=== PATIENT | female | born 1995 | race Caucasian/White ===

== ENCOUNTER 2020-01-19 12:45 | Emergency (ER) | payer OTHER, SELFPAY ==
[2020-01-19 12:47] VITALS: BP 145/71; PULSE 86; RESP 17; TEMP 36.8; O2SAT 98; BMI 37.9
--- NOTE | 2020-01-19 13:08 | ED.DCSUM_ITS ---
History of Present Illness Chief Complaint: Complaint Informant: Patient Onset: Days Context: Sudden Onset Timing: Continuous Quality: Difficulty urinating Location: Current Severity: Moderate Maximum Severity: Moderate Worsened by: Unknown Relieved by: Nothing Associated Symptoms: Difficulty urinating. Narrative: Patient is a 24-year-old female with no significant past medical history presents with difficulty urinating for possible days. She states she believes she drink enough fluids. In spite of drinking fluid she is not able to urinate. She denies dysuria, frequency, urgency or hematuria. She denies abdominal pain or low back pain. She denies fever or chills. She denies night sweats. She denies weight gain or weight loss. She has no known kidney problems. She denies nausea, vomiting or diarrhea. She denies constipation. She denies gynecologic symptoms. She states relative has problems urinating when the urethra and genital area become swollen. There is no known history of kidney problems. Based on review of medications she is presently on no new meds and nothing that should cause urinary retention. Prior similar symptoms: No Recent Illness/Hospitalization: No - Past Medical History (1) History of depression Status: Acute Past Medical History - Allergies and Home Meds Allergies/Adverse Reactions: Allergies No Known Allergies Allergy (Verified 01/19/20 12:47) Primary Care Physician: Evelina Rendon MD [Primary Care Provider] - Prior records reviewed: Yes Surgical History: no surgical history Alcohol: None Drugs: None Review of Systems General: Denies: Chills, Fever, Malaise, Sweats Cardiovascular: Denies: Chest pain, Palpitations Respiratory: Denies: Dyspnea, Cough, Dyspnea on exertion, Orthopnea, Paroxysmal nocturnal dyspnea Gastrointestinal: Denies: Abdominal pain, Nausea, Vomiting, Constipation, Melena, Hematochezia Genitourinary: Denies: Dysuria, Hematuria, Frequency Musculoskeletal: Denies: Myalgias, Arthralgias, Neck pain, Back pain, Swelling, Extremity Pain, -, - Skin: Denies: Rash, Wounds Neurological: Denies: Headache, Weakness, Parasthesia, Numbness Endocrine: Denies: Polyuria, Polydipsia Physical Exam Vital Signs/Narrative: Vital Signs Temp Pulse Resp BP Pulse Ox 01/19/20 12:47 98.3 F 86 17 145/71 H 98 Inital Vital Signs reviewed: Yes General: Well nourished, Well developed, Obese, No Acute Distress Head: Normocephalic, Atraumatic Eyes: Perrl, EOMI. Negative for: Pale conjunctiva, Scleral icterus ENT: No rhinorrhea, Dry mucous membranes Neck: Supple, Nontender Cardiovascular: Regular rate, Regular rhythm, No murmurs, Normal S1, Normal S2 Respiratory: No distress, CTA bilaterally, Chest nontender Abdomen: Soft, Nontender, Nondistended, Normal bowel sounds, No masses Rectal: Deferred Back: Nontender, Normal Inspection. Negative for: CVA tenderness Skin: Normal color, No rash Neurological: Alert, Oriented x3, Cranial nerves II-XII grossly intact, Normal Strength, Normal Sensation Psychological: Normal affect, Normal Mood Diagnostic/Tx/Re-eval Laboratory Results 01/19/20 01/19/20 13:09 13:30 Sodium 139 Potassium 4.1 Chloride 106 Carbon Dioxide 26.0 Anion Gap 7 BUN 7 Creatinine 0.72 Estim Creat Clear Calc 104.94 Est GFR (MDRD) Af Amer 128 Est GFR (MDRD) Non-Af 106 BUN/Creatinine Ratio 9.7 L Glucose 90 Calcium 9.3 Urine Color Yellow Urine Clarity Clear Urine pH 7.0 Ur Specific [place] 1.015 Urine Protein 15 H Urine Glucose (UA) Normal Urine Ketones Negative Urine Occult Blood Negative Urine Nitrite Positive H Urine Bilirubin Negative Urine Urobilinogen Normal Ur Leukocyte Esterase 25 H Renal function is normal. Macro reveals nitrites and leukoesterase. Urine culture was sent in place and was placed on 3-day course of Macrobid. He was referred to urology for urinary retention. - Medical Decision Making [place] patient appears dehydrated. She had no discomfort with palpation over the suprapubic area and based on body habitus unable to determine if she has a distended bladder. Will have nurse perform bladder scan determine if she has urinary retention. BMP was obtained to assess BUN to creatinine ratio as well as electrolytes and renal function. UA to evaluate for specific gravity and if there are any epithelial or hilar casts etc. I was informed by her nurse that the bladder scan revealed 567 cc of urine. A [place] was ordered. ED Disposition - Plan for ED Patient: Disposition: Home or Assisted Living Diagnosis: Acute urinary retention Instructions: ED [place] Catheter Care Prescriptions: Nitrofurantoin Macrocrystals [Macrobid] 100 mg PO Q12 #10 cap Transmission Status: Pending to [id number] Referrals: Evelina Rendon MD [Primary Care Provider] - Tigre Sanabria MD [STAFF PHYSICIAN] - 3-5 Days
[2020-01-19] MEDS: 0.9% Normal Saline 1,000 ML 1000 ML IV (13:27)
[2020-01-19 13:29] LABS: Anion Gap 7 (5-15); BUN 7 mg/dL (7-18); BUN/Creat Ratio 9.7 RATIO (10-20); Calcium,Total 9.3 mg/dL (8.5-10.1); Chloride 106 mmol/L (98-107); Creatinine, Serum 0.72 mg/dL (0.55-1.02); EST Glomerular Filtration Rate 106 mL/min (>60); Est Glom Filt Rate - Afr Amer 128 mL/min (>60); Estimated Creatinine Clearance 104.94 ml/min; Glucose 90 mg/dL (74-106); Potassium 4.1 mmol/L (3.5-5.1); Sodium Level 139 mmol/L (136-145)
[2020-01-19 13:49] LABS: Color, Urine Yellow (Yellow); Glucose, Dipstick Normal (Normal); Ketone-Dipstick Negative (Negative); Leukocyte Esterase-Dipstick 25 /ul (Negative); Nitrite-Dipstick Positive (Negative); Occult Blood-Urine Negative /ul (Negative); Protein-Dipstick 15 mg/dl (Negative); Specific Gravity, Urine 1.015 (1.002-1.030); Urine Bilirubin Dipstick Negative (Negative); Urine Clarity Clear (Clear); Urine Urobilinogen Normal (Normal)
[2020-01-19] MEDS: Nitrofurantoin Macrocrystals 100 MG Capsule PO (14:14)
[2020-01-19 14:17] VITALS: BP 136/91; PULSE 92; RESP 16; O2SAT 98
== END 2020-01-19 14:19 | disposition home or self-care (01) ==
PROVIDERS: Emergency Provider Emergency Medicine; PCP Pediatrics
DX: R33.9 Retention of urine, unspecified (principal); E66.9 Obesity, unspecified
CPT/HCPCS: 51702; 80048; 81002; 87077; 87086; 87088; 87186; 99284; J7030; A4216

== ENCOUNTER 2021-12-07 20:04 | Emergency (ER) | payer OTHER, SELFPAY ==
[2021-12-07 20:06] VITALS: BP 125/66; PULSE 80; RESP 14; TEMP 36.2; O2SAT 100; BMI 35.2
--- NOTE | 2021-12-07 21:02 | ED.VIS.FEGU ---
HPI HPI - Female History of Present Illness Chief Complaint: Informant: patient Associated Symptoms P: 1 Ab: 0 Narrative Narrative: 1 to 2 hours prior to evaluation, patient was hiking, she tripped over a branch, she fell to her right elbow and her left knee, she did not injure this severely, she did not hit her abdomen or develop any abdominal pain, she is 17 weeks . However later when she went to urinate, she expelled a large 2 inch strand of mucus. She called her OB and out of concern of the possibility of passing her mucous plug, she was advised to come to local ER for evaluation. She has developed no abdominal pain, bleeding, or any other systemic symptoms. Her OB is Dr. Hu out of [facility] in [place]. [facility] Medical History Fx clavicle Fx patella Post depression Home Medications aspirin 81 mg PO DAILY 12/07/21 [History Last Taken Unknown] [id number] [] 1 tab PO DAILY 12/07/21 [History Last Taken Unknown] Allergy/AdvReac Type Severity Reaction Status Date / Time cortisone Allergy Other Verified 12/07/21 20:06 Social History Smoking Status: Former smoker ROS ROS ED Constitutional Constitutional ED: Denies chills or fever(s) Eyes Eyes: Denies change in vision or diplopia ENT ENT ED: Denies rhinorrhea or sore throat Cardiovascular Cardiovascular: Denies chest pain or palpitations Respiratory/Chest Respiratory/Chest: Denies cough or dyspnea Gastrointestinal Gastrointestinal: Denies abdominal pain, diarrhea, nausea or vomiting Genitourinary Genitourinary ED: Denies dysuria or hematuria Musculoskeletal Musculoskeletal: Denies back pain or neck pain Integumentary Reports Abrasions; Denies abscess or rash Neurologic Neurologic: Denies headache(s), paresthesias or weakness Psychiatric Psychiatric: Denies anxiety or suicidal thoughts EXAM Physical Exam Const Vital Signs: 12/07/21 20:06 12/07/21 21:05 12/07/21 22:00 Temperature 97.1 F L Temperature Source Temporal Pulse Rate 80 Respiratory Rate 14 18 17 Blood Pressure 125/66 H Blood Pressure Mean 85 Pulse Ox 100 Oxygen Delivery Method Room Air Room Air Room Air 12/07/21 23:00 Temperature Temperature Source Pulse Rate Respiratory Rate 15 Blood Pressure Blood Pressure Mean Pulse Ox Oxygen Delivery Method Room Air Positive well nourished and well developed Constitutional Narrative: Well-appearing in no distress General Appearance ED: well developed and NAD HEENT Reports moist mucous membranes normocephalic and atraumatic Eyes PERRL and EOMs intact bilaterally Neck full ROM and supple Resp normal respiratory effort and clear to auscultation bilaterally Cardio regular rate, regular rhythm and no murmurs Rate: Negative for tachycardic GI non-tender and non-distended Auscultation: normoactive bowel sounds Palpation: soft Narrative: External exam is normal. Pelvic/speculum exam performed with adjunct nursing faculty, in sterile manner; there is mucus present emanating from the cervical eyes. The cervix is otherwise normal. No bleeding. Back/Spine no CVA tenderness General Back: other FROM Extremity normal to inspection General Extremety ED: Negative for edema, pulses abnormal or tenderness General Extremity: Negative for edema or pulses abnormal Neuro oriented x3, CN's II-XII intact bilaterally and no sensory deficits noted Sensorium / Orientation: awake and alert Motor Exam: strength 5/5 throughout Skin no rashes or lesions noted and no wounds MDM MDM MDM Narrative Medical decision making narrative: Patient did not know her blood type nor did we have record of it, therefore we sent an ABO/OH, she is O+ so RhoGAM is not indicated. I did bedside OB ultrasound, there is a single live intrauterine , heart tones 167, biparietal distance consistent with approximately 18w0d . Patient has developed no bleeding nor abdominal pain. I discussed with Dr. Gonzalez, on-call for her OB group, she advises reassuring the patient for now, discharging her home, and someone will contact her in the morning for further follow-up instructions. Lab Data Attestation: I reviewed the patient's lab results. Labs: Laboratory Results - last 24 hr 12/07/21 21:05 Blood Type O POSITIVE Discharge Plan Triage Chief Complaint: ED Provider: Ayo Castillo Dx/Rx/DC Orders Clinical Impression: Cervical mucus plug of passed, Second trimester , Fall from slip, trip, or stumble Instructions: ED Possible Miscarriage ... Prescriptions: No Action aspirin 81 mg Capsule 81 mg PO DAILY RF: 0 1 mg Tablet 1 tab PO DAILY RF: 0 Primary Care Provider: Evelina Rendon Referrals: Jacey Gonzalez MD [STAFF PHYSICIAN] - (Someone will call you for further follow-up instructions tomorrow) Evelina Rendon MD [Primary Care Provider] - Activity Restrictions/Additional Instructions: Pelvic rest until told otherwise Disposition Disposition: Home, Self Care
[2021-12-07 21:05] VITALS: RESP 18
[2021-12-07 22:00] VITALS: RESP 17
[2021-12-07 23:00] VITALS: RESP 15
== END 2021-12-07 23:26 | disposition home or self-care (01) ==
PROVIDERS: Emergency Provider Emergency Medicine; PCP Pediatrics; Visit Provider Emergency Medicine
DX: O26.892 Other specified pregnancy related conditions, second trimester (principal); Z87.891 Personal history of nicotine dependence; Z79.82 Long term (current) use of aspirin; Z3A.17 17 weeks gestation of pregnancy; W19.XXXA Unspecified fall, initial encounter
CPT/HCPCS: 86900; 86901; 99282

== ENCOUNTER → 2022-10-17 | Outpatient (CLI) | payer MEDICAID, SELFPAY ==
[2022-10-19 22:07] LABS: Chlamydia By Nucleic Acid AMP Negative (Negative)
[2022-10-20 09:28] LABS: Gonococcus By Nucleic Acid AMP Negative (Negative)
[2022-10-25 12:22] LABS: HPV Reflexed? NOT INDICATED
== END | disposition home or self-care (01) ==
PROVIDERS: PCP Pediatrics; Referring Provider Obstetrics & Gynecology; Visit Provider Obstetrics & Gynecology
DX: O09.90 Supervision of high risk pregnancy, unspecified, unspecified trimester (principal)
CPT/HCPCS: 87086; 87088; 87491; 87591; 88175; G0145

== ENCOUNTER → 2022-10-24 | Outpatient (CLI) | payer MEDICAID, SELFPAY ==
[2022-10-24 16:23] LABS: Absolute Lymphocyte Count 2.46 X10^3/uL (0.83-4.51); Absolute Neutrophil Count 6.8 X10^3/uL (2.0-7.7); Basophil# 0.04 X10^3/uL; Basophil% 0.4 % (0-1); Eosinophil# 0.06 X10^3/uL; Eosinophils% 0.6 % (0-5); Hemoglobin 13.5 g/dL (12.0-15.0); Lymphocyte # 2.46 X10^3/ul (0.83-4.51); Lymphocyte % 24.6 % (19-41); Mean Corp Hgb Conc 33.8 g/dL (32-36); Mean Corpuscular Hgb 28.7 pg (27.0-32.0); Mean Corpuscular Volume 84.9 fL (81-99); Mean Platelet Vol. 9.2 fl (6.2-12.0); Monocyte# 0.61 X10^3/uL; Monocyte% 6.1 % (0-10); NRBC Flagged by Analyzer 0 % (0-5); Platelet Count 266 K/mm3 (150-450); RBC Distribution Width CV 15.9 % (11.6-14.6); RBC Distribution Width SD 49.8 fl (35.1-43.9); Red Blood Count 4.71 M/mm3 (4.2-5.4)
[2022-10-24 16:26] LABS: Protein, Urine (Random) 24.3 mg/dL (<11.9); Protein:Creat Ratio 130 mg/g CRE (0-200)
[2022-10-24 16:55] LABS: NATERA MAILED SPECIMEN
[2022-10-24 17:03] LABS: ALB/GLOB Ratio 1.1 RATIO (0.9-2.4); AST(SGOT) 24 U/L (15-37); Alanine Aminotransfer ALT/SGPT 25 U/L (13-56); Albumin, Serum 3.9 g/dL (3.2-5.0); Alkaline Phosphatase 81 U/L (45-117); Anion Gap 6 (5-15); BUN 6 mg/dL (7-18); BUN/Creat Ratio 9.9 RATIO (10-20); Chloride 106 mmol/L (98-107); Creatinine, Serum 0.61 mg/dL (0.55-1.02); EST Glomerular Filtration Rate 127 mL/min (>60); Est Glom Filt Rate - Afr Amer 153 mL/min (>60); Globulin 3.7 g/dL (2.2-4.2); Glucose 86 mg/dL (74-106); Potassium 3.2 mmol/L (3.5-5.1); Protein, Total 7.6 g/dL (6.4-8.2); Sodium Level 137 mmol/L (136-145)
[2022-10-24 17:41] LABS: HIV - WCH Non-Reactive (Nonreactive); Hepatitis B Surface Antigen Non-Reactive (Nonreactive); Hepatitis C Antibody Non-Reactive (Nonreactive); Rubella IgG Reactive (Nonreactive); Syphilis Antibodies Non-reactive
== END | disposition home or self-care (01) ==
LOC: PAVLAB 15:43
PROVIDERS: PCP Pediatrics; Referring Provider Obstetrics & Gynecology; Visit Provider Obstetrics & Gynecology
DX: O09.90 Supervision of high risk pregnancy, unspecified, unspecified trimester (principal)
CPT/HCPCS: 36415; 80053; 82570; 84156; 85025; 86703; 86762; 86780; 86803; 86850; 86900; 86901; 87340

== ENCOUNTER → 2022-10-31 | Outpatient (CLI) | payer MEDICAID, SELFPAY ==
[2022-10-31 18:17] LABS: Anion Gap 2 (5-15); BUN 9 mg/dL (7-18); BUN/Creat Ratio 14.9 RATIO (10-20); Calcium,Total 9.4 mg/dL (8.5-10.1); Chloride 105 mmol/L (98-107); Creatinine, Serum 0.61 mg/dL (0.55-1.02); EST Glomerular Filtration Rate 127 mL/min (>60); Est Glom Filt Rate - Afr Amer 153 mL/min (>60); Glucose 82 mg/dL (74-106); Potassium 3.9 mmol/L (3.5-5.1); Sodium Level 133 mmol/L (136-145)
== END | disposition home or self-care (01) ==
LOC: LAB 16:45
PROVIDERS: PCP Pediatrics; Referring Provider Obstetrics & Gynecology; Visit Provider Obstetrics & Gynecology
DX: Z34.91 Encounter for supervision of normal pregnancy, unspecified, first trimester (principal); Z3A.09 9 weeks gestation of pregnancy
CPT/HCPCS: 36415; 80048

== ENCOUNTER → 2022-12-14 | Outpatient (CLI) | payer MEDICAID, SELFPAY ==
[2022-12-14 16:11] LABS: Glucose Challenge Gest 1H 50g 93 mg/dL (70-140)
== END | disposition home or self-care (01) ==
LOC: PAVLAB 15:27
PROVIDERS: PCP Pediatrics; Referring Provider Obstetrics & Gynecology; Visit Provider Obstetrics & Gynecology
DX: O99.210 Obesity complicating pregnancy, unspecified trimester (principal)
CPT/HCPCS: 36415; 82950

== ENCOUNTER → 2022-12-27 | Outpatient (CLI) | payer MEDICAID, SELFPAY | END | disposition home or self-care (01) | PROVIDERS: PCP Pediatrics; Referring Provider Obstetrics & Gynecology; Visit Provider Obstetrics & Gynecology | DX: Z34.90 Encounter for supervision of normal pregnancy, unspecified, unspecified trimester (principal); Z3A.00 Weeks of gestation of pregnancy not specified | CPT/HCPCS: 36415 ==

== ENCOUNTER 2023-02-05 14:48 | Outpatient (CLI) | payer MEDICAID, SELFPAY ==
[2023-02-05 14:49] VITALS: BP 120/63; PULSE 78; RESP 18; TEMP 36.1; O2SAT 96
--- NOTE | 2023-02-05 15:06 | RAD_ITS ---
INDICATION: pain, trauma -- shield abdomen 25 weeks EXAMINATION/TECHNIQUE: X-RAY - LEFT XR Knee 2 VIEWS COMPARISON: FINDINGS: SOFT TISSUES: No soft tissue swelling or gas. No radiopaque foreign body. BONES/JOINTS: No acute fracture or subluxation.. Normal alignment. Preservation of the joint space.. No sclerotic or destructive changes observed. RAD/Knee 1 or 2 Views IMPRESSION: Negative. Electronically Signed: Judith Leonard MD at 15:58 EDT ,
--- NOTE | 2023-02-05 15:08 | ED.VIS.LOWEX ---
HPI History of Present Illness Chief Complaint: Lower Extremity Injury Narrative Narrative: 27-year-old female, G3, P2 at approximately 25 weeks gestation, sees Dr. Inna Cohen as her [employer] presents with injury to her left lower extremity that she sustained approximately 45 minutes ago. While she states that she had problems with her left knee previously but was unable to get an MRI secondary to her being with a previous gestation, she states that her dog had pulled her out of the car and onto her left knee and ankle. She fell twisting and a pop in her left knee and now has pain inside. She has pain when trying to fully extend her left knee. She also has pain and swelling diffusely about her left ankle. She sustained abrasions over her left ankle and some on her proximal tibia, and believes that her tetanus immunization is up-to-date. She states she still feels the baby moving around, and denies any vaginal bleeding or pelvic cramping. She did not hit her head or lose consciousness. She presents for evaluation of the pain in her knee and left ankle. [facility] Medical History Fx clavicle Fx patella Osteoarthritis Post depression Home Medications aspirin 81 mg capsule 81 mg PO DAILY 12/07/21 [History Last Taken Unknown] [id number] 1 mg tablet 1 tab PO DAILY 12/07/21 [History Last Taken Unknown] albuterol sulfate 90 mcg/actuation aerosol inhaler 1 inh inhalation ONCE 10/05/22 [History Last Taken Unknown] sertraline 25 mg tablet (Zoloft) 25 mg PO DAILY depression #90 tabs 10/05/22 [Rx Last Taken Unknown] Allergy/AdvReac Type Severity Reaction Status Date / Time cortisone Allergy Other Verified 02/05/23 14:49 bupropion AdvReac Severe Other Verified 02/05/23 14:49 Family History Grandfather Heart disease Mother Endometriosis Surgical History History of delivery History of removal of cyst Social History adopted: No household members: spouse and children housing: house number of children: 3 current occupational status: unemployed current occupation: [employer] current occupational exposures/hazards: No pets and animals: Yes pets and animals: dog(s) history of recent travel: No sexually active: Yes Smoking Status: Former smoker quit date: 08/31/22 how long ago did patient quit smoking: stops during preg alcohol intake: current alcohol intake frequency: holidays/special occasions only substance use type: does not use well-balanced diet: about half the time caffeine: Yes Type: carbonated beverages Number of servings: 2 and coffee Number of servings: 1 seatbelt use: always do you feel safe at home: Yes 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 HEENT: No sore throat. No neck pain. No loss of vision. No rhinorrhea. Cardiovascular: No chest pain. No palpitations. No pedal edema. Respiratory: No cough, no shortness of breath. Abdominal: No abdominal pain. No nausea. No vomiting. Genitourinary: No dysuria. No hematuria. Musculoskeletal: No myalgias. Left knee and ankle pain worse with movement. Worse with weightbearing as well. Neurologic: No headaches. No dizziness. No lightheadedness. Skin: No rash. No change in color. Psychiatric: No depression. No anxiety. EXAM Physical Exam Narrative Exam Narrative: Afebrile. Vital signs noted. HEENT: Normocephalic. Atraumatic. PERRL, EOMI. Neck soft and supple. No point tenderness or step off. Cardiovascular: Regular rate and rhythm. No murmurs, rubs, or gallops appreciated. Respiratory: No tachypnea. Lungs clear to auscultation bilaterally. Gastrointestinal: Abdomen soft, nontender, with normoactive bowel sounds. No rebound or guarding. Gravid uterus. Neurological: Awake. Alert. Nonfocal, nonlateralizing. Skin: No rash. Normal color. No pallor. Musculoskeletal: No pedal edema. Limited range of motion of left knee and ankle secondary to pain. Positive abrasions over left ankle and left anterior tibia proximally without active bleeding. Flexion extension mechanism of left leg/knee intact. Able to raise leg off bed. Palpable dorsalis pedis pulse. Diffuse tenderness to palpation left ankle. Const Vital Signs: 02/05/23 14:49 Temperature 97 F L Temperature Source Temporal Pulse Rate 78 Respiratory Rate 18 Blood Pressure 120/63 Blood Pressure Mean 82 Pulse Ox 96 Oxygen Delivery Method Room Air MDM MDM MDM Narrative Medical decision making narrative: heart tones will be obtained as the patient is 25 weeks gestation. X-rays were obtained of the left knee and 2 views and left ankle and 3 views. She was told of the risk of radiation to herself and the fetus and acknowledges an understanding. She is given Tylenol for analgesia along with ice packs. I reviewed and interpreted her x-rays of her left knee and of her left ankle and see no evidence of an acute fracture or effusion. I reviewed the radiology report which confirms my independent interpretations. At this point in time, she will be placed in an Lexx wrap on her left knee, and an Aircast on her left ankle. I do not feel that crutches should be used as she is 25 weeks and increase her fall risk. heart tones were obtained and they are normal at 143 bpm. I did discuss the patient with Dr. Virgil Rios for Dr. Inna Cohen. As the patient is over 24 weeks gestation, she will be discharged from the emergency department and taken to labor and delivery for further monitoring of her . I feel she be discharged safely home with follow-up. Return instructions were reviewed. Disposition is discharged home in stable condition. History & Record Review Discussion w/independent historian: Patient Additional record(s) reviewed:: Prior ED visit Radiography Diagnostic Testing: Clinical Impression(s) from Imaging Studies Knee X-Ray 02/05/23 15:06 IMPRESSION: Negative. Electronically Signed: Judith Leonard MD at 15:58 EDT , Ankle X-Ray 02/05/23 15:36 IMPRESSION: Negative. Electronically Signed: Judith Leonard MD at 15:58 EDT , Management Discussion w/another healthcare provider: Grocery Clerk Stocking ([employer], Dr. Rios) Discharge Plan Triage Chief Complaint: Lower Extremity Injury ED Provider: David Carreon Dx/Rx/DC Orders Clinical Impression: Left knee sprain, Abrasion of left lower leg, Fall, Left ankle sprain Instructions: ED Knee Sprain, ED Ankle Sprain (Adult) Prescriptions: No Action albuterol sulfate 90 mcg/actuation HFA aerosol inhaler 1 inh inhalation ONCE sertraline [Zoloft] 25 mg tablet 25 mg PO DAILY Qty: 90 2RF aspirin 81 mg Capsule 81 mg PO DAILY 1 mg Tablet 1 tab PO DAILY Primary Care Provider: Evelina Rendon Referrals: Evelina Rendon MD [Primary Care Provider] - Inna Cohen MD [Med Staff - Active Staff] - Keep Kristi appointment Activity Restrictions/Additional Instructions: Report immediately to labor and delivery for further monitoring of your . Take Tylenol as needed for pain. No ibuprofen or NSAIDs. Disposition Disposition: Home, Self Care
[2023-02-05 15:28] VITALS: BMI 37.8
[2023-02-05] MEDS: Acetaminophen 325 MG Tablet 650 MG PO (15:31)
--- NOTE | 2023-02-05 15:36 | RAD_ITS ---
INDICATION: pain, trauma -- shield abdomen, 25 weeks EXAMINATION/TECHNIQUE: X-RAY - LEFT XR Ankle Min 3 Views 3 VIEWS COMPARISON: No relevant prior comparison study available FINDINGS: SOFT TISSUES: No soft tissue swelling or gas. No radiopaque foreign body. BONES/JOINTS: No acute fracture or subluxation.. Normal alignment. Preservation of the joint space.. No sclerotic or destructive changes observed. RAD/Ankle min 3 Views IMPRESSION: Negative. Electronically Signed: Judith Leonard MD at 15:58 EDT ,
[2023-02-05 16:54] VITALS: BMI 36.8
--- NOTE | 2023-02-05 17:35 | OB.TRI.PN_ITS ---
Progress Notes Date of Service: 02/05/23 Progress Note: Patient presents for triage evaluation secondary to falling to her knees earlier today. She had no abdominal trauma. FHT: Moderate variability, no decelerations appropriate for gestational age [place]: no Contractions Assessment and plan: appropriate for gestational age, no abdominal trauma, no vaginal bleeding or contractions, O+, positive movement, reassuring maternal and status patient discharged to home to follow-up in office . See problem list details for additional plan information. Charges/Coding Multi Select Codes Urinary/Genital Urinary/Genital CPT Codes: No Charge Assessment & Plan (1) Fall: (2) Supervision of high risk , antepartum: COMMENT: ELISA 05/19/23 PC Gregory [place], [place] ([place] (3) : QUALIFIERS: Weeks of gestation: 17 weeks Qualified Code(s): Z3A.17 - 17 weeks gestation of COMMENT: NIPT low risk, nl GCT, Negative AFP labs (4) Anxiety during : COMMENT: no meds, encouraged counseling (5) History of delivery affecting : COMMENT: Apr 2022- wanting repeat C/S
== END 2023-02-05 17:35 | disposition home or self-care (01) ==
LOC: ED 16:26 → WPOUT 16:47 → WP 16:49
PROVIDERS: Emergency Provider Emergency Medicine; PCP Pediatrics; Referring Provider Advanced Practice Midwife; Visit Provider Advanced Practice Midwife
DX: O9A.212 Injury, poisoning and certain other consequences of external causes complicating pregnancy, second trimester (principal); O09.92 Supervision of high risk pregnancy, unspecified, second trimester; Z3A.17 17 weeks gestation of pregnancy; O99.342 Other mental disorders complicating pregnancy, second trimester; F41.9 Anxiety disorder, unspecified; O34.219 Maternal care for unspecified type scar from previous cesarean delivery; S83.92XA Sprain of unspecified site of left knee, initial encounter; S93.402A Sprain of unspecified ligament of left ankle, initial encounter; S80.812A Abrasion, left lower leg, initial encounter; W19.XXXA Unspecified fall, initial encounter
CPT/HCPCS: 59025; 59050; 73560; 73610; 99221; 99283; G0378

== ENCOUNTER → 2023-02-10 | Outpatient (CLI) | payer MEDICAID, SELFPAY ==
[2023-02-10 15:59] LABS: Absolute Lymphocyte Count 1.91 X10^3/uL (0.83-4.51); Absolute Neutrophil Count 10.7 X10^3/uL (2.0-7.7); Basophil# 0.04 X10^3/uL; Basophil% 0.3 % (0-1); Eosinophils% 0.7 % (0-5); Hemoglobin 13.1 g/dL (12.0-15.0); Lymphocyte # 1.91 X10^3/ul (0.83-4.51); Lymphocyte % 14.1 % (19-41); Mean Corp Hgb Conc 32.8 g/dL (32-36); Mean Corpuscular Hgb 29.4 pg (27.0-32.0); Mean Corpuscular Volume 89.9 fL (81-99); Mean Platelet Vol. 10.3 fl (6.2-12.0); Monocyte# 0.74 X10^3/uL; Monocyte% 5.5 % (0-10); NRBC Flagged by Analyzer 0 % (0-5); Neutrophil # 10.66 X10^3/uL (2.7-7.7); Neutrophil % 78.9 % (47-70); Platelet Count 228 K/mm3 (150-450); RBC Distribution Width CV 13.6 % (11.6-14.6); RBC Distribution Width SD 44.9 fl (35.1-43.9); Red Blood Count 4.45 M/mm3 (4.2-5.4); White Blood Count 13.5 K/mm3 (4.4-11.0)
[2023-02-10 17:08] LABS: Glucose Challenge Gest 1H 50g 95 mg/dL (70-140)
[2023-02-10 17:42] LABS: HIV - WCH Non-Reactive (Nonreactive); Syphilis Antibodies Non-reactive
== END | disposition home or self-care (01) ==
LOC: LAB 15:16
PROVIDERS: PCP Pediatrics; Referring Provider Obstetrics & Gynecology; Visit Provider Obstetrics & Gynecology
DX: O09.90 Supervision of high risk pregnancy, unspecified, unspecified trimester (principal); Z3A.00 Weeks of gestation of pregnancy not specified
CPT/HCPCS: 36415; 82950; 85025; 86703; 86780

== ENCOUNTER → 2023-03-07 | Outpatient (CLI) | payer MEDICAID, SELFPAY ==
[2023-03-07 17:17] LABS: Absolute Lymphocyte Count 2.56 X10^3/uL (0.83-4.51); Absolute Neutrophil Count 9.7 X10^3/uL (2.0-7.7); Basophil# 0.04 X10^3/uL; Basophil% 0.3 % (0-1); Eosinophil# 0.09 X10^3/uL; Eosinophils% 0.7 % (0-5); Hematocrit 37.2 % (37-47); Hemoglobin 13.1 g/dL (12.0-15.0); Lymphocyte # 2.56 X10^3/ul (0.83-4.51); Lymphocyte % 19.3 % (19-41); Mean Corp Hgb Conc 35.2 g/dL (32-36); Mean Corpuscular Hgb 31.3 pg (27.0-32.0); Mean Platelet Vol. 10.8 fl (6.2-12.0); Monocyte# 0.78 X10^3/uL; Monocyte% 5.9 % (0-10); NRBC Flagged by Analyzer 0 % (0-5); Neutrophil % 73.1 % (47-70); Platelet Count 206 K/mm3 (150-450); RBC Distribution Width CV 13.3 % (11.6-14.6); RBC Distribution Width SD 43.1 fl (35.1-43.9); Red Blood Count 4.18 M/mm3 (4.2-5.4); White Blood Count 13.3 K/mm3 (4.4-11.0)
[2023-03-07 17:36] LABS: Protein:Creat Ratio 247 mg/g CRE (0-200)
[2023-03-07 17:55] LABS: ALB/GLOB Ratio 0.7 RATIO (0.9-2.4); AST(SGOT) 14 U/L (15-37); Alanine Aminotransfer ALT/SGPT 10 U/L (13-56); Albumin, Serum 2.8 g/dL (3.2-5.0); Alkaline Phosphatase 130 U/L (45-117); Anion Gap 8 (5-15); BUN 3 mg/dL (7-18); BUN/Creat Ratio 5.6 RATIO (10-20); Calcium,Total 9.3 mg/dL (8.5-10.1); Chloride 109 mmol/L (98-107); Creatinine, Serum 0.53 mg/dL (0.55-1.02); EST Glomerular Filtration Rate 147 mL/min (>60); Est Glom Filt Rate - Afr Amer 178 mL/min (>60); Globulin 4.2 g/dL (2.2-4.2); Glucose 84 mg/dL (74-106); Potassium 3.1 mmol/L (3.5-5.1); Sodium Level 139 mmol/L (136-145)
== END | disposition home or self-care (01) ==
PROVIDERS: PCP Pediatrics; Referring Provider Nurse Practitioner Women's Health; Visit Provider Nurse Practitioner Women's Health
DX: Z34.90 Encounter for supervision of normal pregnancy, unspecified, unspecified trimester (principal); Z3A.00 Weeks of gestation of pregnancy not specified
CPT/HCPCS: 36415; 80053; 82570; 84156; 85025

== ENCOUNTER 2023-03-22 11:00 | Outpatient (CLI) | payer MEDICAID, SELFPAY ==
[2023-03-22] VITALS (13 sets, daily range): BP systolic 112–136; BP diastolic 56–80; PULSE 65–82; TEMP 36.8; O2SAT 99; BMI 37.8
[2023-03-22 11:31] LABS: Hemoglobin 12.5 g/dL (12.0-15.0); Mean Corp Hgb Conc 32.9 g/dL (32-36); Mean Corpuscular Hgb 29.7 pg (27.0-32.0); Mean Corpuscular Volume 90.3 fL (81-99); Mean Platelet Vol. 10.3 fl (6.2-12.0); Platelet Count 203 K/mm3 (150-450); RBC Distribution Width CV 13.1 % (11.6-14.6); Red Blood Count 4.21 M/mm3 (4.2-5.4); White Blood Count 11.9 K/mm3 (4.4-11.0)
[2023-03-22 11:45] LABS: Protein, Urine (Random) 18.1 mg/dL (<11.9); Protein:Creat Ratio 248 mg/g CRE (0-200)
[2023-03-22 11:54] LABS: AST(SGOT) 12 U/L (15-37); Alanine Aminotransfer ALT/SGPT 12 U/L (13-56); Creatinine, Serum 0.59 mg/dL (0.55-1.02); EST Glomerular Filtration Rate 131 mL/min (>60); Est Glom Filt Rate - Afr Amer 158 mL/min (>60); Estimated Creatinine Clearance 124.77 ml/min; Uric Acid 2.4 mg/dL (2.6-6.0)
--- NOTE | 2023-03-22 11:55 | MRI_ITS ---
STUDY: MRA OF THE HEAD WITHOUT CONTRAST REASON FOR EXAM: Female, 27 years old patient with vision loss, headache and numbness. TECHNIQUE: 3-D [id number] (TOF) imaging was performed with MIPs. The study was performed unenhanced. COMPARISON: None. FINDINGS: Normal bilateral petrous carotid arteries. Normal right cavernous carotid artery with a normal supraclinoid bifurcation. Normal left cavernous carotid artery with a normal supraclinoid bifurcation. Normal right A1 segments of the anterior cerebral artery. There is non-visualization of the left A1 segment of the anterior cerebral arteries consistent with either aplastic development or an occlusion. Normal intact anterior communicating artery (ACOM). Normal bilateral A2 segments of the anterior cerebral arteries. Normal right M1 and M2 segments of the middle cerebral arteries, with a normal M1 bifurcation. Normal left M1 and M2 segments of the middle cerebral arteries, with a normal M1 bifurcation. There is non-visualization of the right posterior communicating artery (PCOM). There is a persistent origin of the left posterior cerebral artery with absence of the P1 segment of the left posterior cerebral artery. There is a small atretic right vertebral artery with a dominant left vertebral artery. Normal basilar artery with a normal basilar bifurcation. The visualized bilateral superior cerebellar (SCA) arteries are normal. There is absence of the left P1 segment of the posterior cerebral arteries with a normal right P1 segment. Normal visualized bilateral P2 and P3 segments of the posterior cerebral arteries. There is no demonstrated aneurysm of the [place]. There is no major vessel occlusion or hemodynamically significant stenosis. There is no demonstrated abnormality of the visualized brain. MRI/MRA Head ONLY without Contrast IMPRESSION: No MRA evidence for hemodynamically significant stenosis, thrombosis or aneurysm. Electronically Signed: Ashtyn Hillman MD at 18:26 EDT ,
--- NOTE | 2023-03-22 11:55 | MRI_ITS ---
STUDY: MRI BRAIN WITHOUT CONTRAST REASON FOR EXAM: Female, 27 years old patient with vision loss, left-sided blurry vision, dizziness, headache, numbness, and feels pressure in head. TECHNIQUE: Standardized multiplanar fat and water weighted pulse sequences were obtained. COMPARISON: Prior comparable comparison studies are not available for review at this time. FINDINGS: Normal size of the ventricles and extra-axial spaces for the patient''s age. Normal white matter tracts of the supratentorial brain. There is no evidence for recent intracranial ischemia or other cause of cytotoxic edema on diffusion weighted imaging (DWI). Normal T2* images of the brain without demonstrated susceptibility artifact. There is no demonstrated hemosiderin stain. Normal bilateral basal ganglia. Normal thalami. There is no extra-axial fluid accumulation. Normal flow voids within the major intracranial circulation suggesting patency by spin echo criteria. Normal sella turcica, pituitary gland, infundibular stalk, optic chiasm and hypothalamus. Normal tectal plate and pineal gland. Normal midbrain, antwan and medulla. Normal cerebellum. Normal basal cisterns. Normal bilateral temporal bones. Normal bilateral internal auditory canals. No demonstrated orbital abnormality, within the constraints of a routine brain study. Normal visualized paranasal sinuses. Normal calvarium and skull base. Normal visualized soft tissue structures. Normal visualized upper cervical spine. MRI/Brain without Contrast IMPRESSION: No MR evidence for mass or acute infarct. Electronically Signed: Ashtyn Hillman MD at 18:31 EDT ,
--- NOTE | 2023-03-22 11:58 | MRI_ITS ---
STUDY: EXAMINATION - MRV BRAIN WITHOUT CONTRAST REASON FOR EXAM: Female, 27 years old patient with visual changes, loss of vision, headache, and numbness. TECHNIQUE: 3D [id number] (TOF) imaging was performed in a andrew MRI scanner. COMPARISON: Prior comparable comparison studies are not available for review at this time. FINDINGS: Normal flow within the superior sagittal sinus. Normal flow within the superficial cortical veins. Normal flow within the paired internal cerebral veins, vein of Lino and straight sinus. There appears to be decreased flow within left transverse sinus and sigmoid sinus possibly secondary to a medial stenosis. The right transverse sinus, sigmoid sinus and jugular bulb have a normal appearance. Normal flow within the bilateral jugular bulbs. MRI/MRV Head Without Contrast IMPRESSION: 1. No MR evidence for dural sinus thrombosis. 2. 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 Electronically Signed: Ashtyn Hillman MD at 18:36 EDT ,
--- NOTE | 2023-03-22 18:03 | OB.TRI.HP_ITS ---
HPI - General HPI Narrative BRENNAN LÓPEZ, is a 27 y/o @ 31 weeks 4 days who presents to L&D from office today with the complaint of posterior headache radiating to front of head, dizziness, and visual changes that are worse when she stands. She has occasional left eye vision loss and numbness in hands and feet. Neurology was consulted and the feed back was that this is likely orthostatic related or cardiac related. the patient denies chest pain or shortness of breath. She denies heart palpitations. She passed her orthostatic tests. An MRA, MRI, MRV were then ordered. Maternal Data Information ELISA Calculator Estimated Delivery Date Method Current WG Current Estimate 05/19/23 LMP (Certain) 31w 5d PFSH PFS Medical History Fx clavicle Fx patella Osteoarthritis Post depression Home Medications aspirin 81 mg capsule 81 mg PO DAILY 12/07/21 [History Last Taken 02/04/23] qqiyzwgz-wsj-Qc-FA 1 mg tablet 1 tab PO DAILY 12/07/21 [History Last Taken 02/04/23] albuterol sulfate 90 mcg/actuation aerosol inhaler 1 inh inhalation ONCE 10/05/22 [History Last Taken 02/04/23] sertraline 25 mg tablet (Zoloft) 25 mg PO DAILY depression #90 tabs 10/05/22 [Rx Last Taken 02/04/23] blood pressure monitor (Blood Pressure Kit) #1 ea 03/08/23 [Rx Last Taken Unknown] Allergy/AdvReac Type Severity Reaction Status Date / Time cortisone Allergy Other Verified 03/22/23 11:35 bupropion AdvReac Severe Other Verified 03/22/23 11:35 Family History Grandfather Heart disease Mother Endometriosis Surgical History History of delivery History of removal of cyst Social History adopted: No household members: spouse and children housing: house number of children: 3 current occupational status: unemployed current occupation: 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 Date Name GA/Weeks Outcome Route Bth Weight Infant Gen [facility] 05/04/17 Adalyne 42 live - full term Female epi dural [facility] 05/09/22 Emberly 37 live - full term Female [facility] Delivery Date: 05/04/17 Last Updated by: Jolanta Rios CNM Pre E Visit Details Expected Delivery Route/Plan RLTCS possible tubal-declines TOLAC Plans Covid status: unvaccinated Flu vaccine: no Tdap vaccine: given Rhogam: NA LARC form signed: yes Problem list reviewed and updated with the most current plan of care details and appropriate orders placed. Relevant counseling for the gestational age provided. Continue routine care and follow up unless otherwise noted in visit notes/problem list details OB Flowsheet Initial Weight: Not Recorded Date -?-?-?-?-?-?-?-?-?-?-?-?- EGA Weight BP Urine Prot -?-?-?-?-?-?-?-?-?-?-?-?- Glucose FHR FuHt Pres Dilation -?-?-?-?-?-?-?-?-?-?-?-?- Effaced St Visit Note 10/17/22 -?-?-?-?-?-?-?-?-?-?-?-?- 9w 3d 199 lb 6 oz 109/65 -?-?-?-?-?-?-?-?-?-?-?-?- 170 -?-?-?-?-?-?-?-?-?-?-?-?- SM- CRL 1.5cm co ns with LMP 11/17/22 -?-?-?-?-?-?-?-?-?-?-?-?- 13w 6d 205 lb 2 oz 120/72 Nega tive -?-?-?-?-?-?-?-?-?-?-?-?- Negative 163 -?-?-?-?-?-?-?-?-?-?-?-?- JV- no lof, vagi nal bleeding, or cramping. GCT ordered. NIPT was normal. 12/14/22 -?-?-?-?-?-?-?-?-?-?-?-?- 17w 5d 208 lb 112/76 Negative -?-?-?-?-?-?-?-?-?-?-?-?- Negative 150 -?-?-?-?-?-?-?-?-?-?-?-?- KW- flutters, no cramping. AFP screening desired. Has US scheduled 12/27. encouraged Asa use. Starting using Albuterol more. discussed tubal with C/S 01/13/23 -?-?-?-?-?-?-?-?-?-?-?-?- 22w 0d 217 lb 6 oz 111/62 Nega tive -?-?-?-?-?-?-?-?-?-?-?-?- Negative 145 -?-?-?-?-?-?-?-?-?-?-?-?- JV- afp was nega tive, ultrasound normal, it's a boy! (they have 3 girls at home) 02/10/23 -?-?-?-?-?-?-?-?-?-?-?-?- 26w 0d 215 lb 113/70 Negative -?-?-?-?-?-?-?-?-?-?-?-?- Negative 146 -?-?-?-?-?-?-?-?-?-?-?-?- JV- pt fell sund ay and was monitored at [facility]. baby was fine but they think she tore a ligament in her knee and twisted her ankle. They told her that they would not do anything for her because MRI is not safe in I told her that this is not true and we need her to be seen. She is having moderate pain. 03/07/23 -?-?-?-?-?-?-?-?-?-?-?-?- 29w 4d 219 lb 4 oz 122/80 Nega tive -?-?-?-?-?-?-?-?-?-?-?-?- Negative 144 30 -?-?-?-?-?-?-?-?-?-?-?-?- MH-No vb,lof. Go od FM. Daily episodes of blurry vision, seeing black spots, feels like will pass out. Normal 28 wk GCT. Will get pre E labs. Enc freg meals, increase fluids. Call to be seen when occurs. MH-No vb,lof. Good FM. Daily episodes of blurry vision, seeing black spots, feels like will pass out. Normal 28 wk GCT. Will get pre E labs. Enc freg meals, increase fluids. Call to be seen when occurs. Larc and tdap. 03/22/23 -?-?-?-?-?-?-?-?-?-?-?-?- 31w 5d 222 lb 6 oz 116/71 Nega tive -?-?-?-?-?-?-?-?-?-?-?-?- Negative 140 32 -?-?-?-?-?-?-?-?-?-?-?-?- - no vb/lof/ct x. good fm. increase loss of vision in left eye. black floaters, inability to read with pressure in head. seeing to for repeat PEC labs and NST. BP reassuring. ROS Constitutional Constitutional: Reports systems reviewed and no addt'l complaints, except as documented ENT HEENT: Reports dizziness Cardiovascular Cardiovascular: Reports dizziness; Denies abdominal bloating, abdominal edema, abdominal pain, chest pain, chest pain at rest, chest pain with activity, dyspnea or dyspnea at rest Respiratory/Chest Respiratory/Chest: Denies cough, dyspnea on exertion, hoarseness or wheezing Gastrointestinal Gastrointestinal: Denies bloating, constipation, cramping, diarrhea, nausea or vomiting Genitourinary Genitourinary: Reports other Details: Denies vaginal odor, vaginal bleeding, or vaginal discharge ; Denies difficulty urinating or flank pain Physical Exam HEENT normocephalic Resp normal respiratory effort and normal air movement no CVA tenderness Extremity normal to inspection General Extremity: edema bilateral (trace ) NST FHR Rate Baby A Baseline: 140 Variability:: Moderate Accelerations:: 15 x 15 Decelerations:: None NST Reactive:: Yes FHR Category:: Category I Assessment & Plan (1) Vision loss of left eye: COMMENT: transient and worse with standing for long periods of time. (2) Headache in : COMMENT: pre- e work up is negative 03/22/23 (3) Blurred vision: COMMENT: Happens daily, sometimes sees spots. Normal recent eye exam. Pre E labs. Freq meals, increase fluids. Call to be seen w/occurrence. repeat PEC labs. P:C on 03/07 257. (4) Obesity affecting : QUALIFIERS: Trimester: third trimester Obesity type affecting : unspecified obesity Qualified Code(s): O99.213 - Obesity complicating , third trimester (5) History of shoulder dystocia: COMMENT: in first , LTCS with second, plans RLTCS (6) History of pre-eclampsia: COMMENT: baseline labs and 81 mg asa at 14 weeks. 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 Stable (10) Anxiety during : COMMENT: zoloft, stable (11) Supervision of high risk , antepartum: COMMENT: [id number] ELISA 05/19/23 PC Gregory Henderson, [place] ([place] (12) : QUALIFIERS: Weeks of gestation: 31 weeks Qualified Code(s): Z3A.31 - 31 weeks gestation of COMMENT: NIPT low risk, nl GCT, Negative AFP labs PLAN: Plan 1. The patient has been observed for several hours and has gone through a neuro exam that was found to be negative over a telemedical service. 2. mri,mra,mrv are pending. 3. PRe-eclampsia work up is negative 4. The is to dc to home if the above tests are negative and follow up with neurology outpatient as teleservice was not helpful or informative. 5. plan to continue eating frequent meals, hydrating, and wearing compression stockings. Charges/Coding Multi Select Codes Visit Charges Office Visit/Consults: 19363 OV L3 Est Urinary/Genital Urinary/Genital CPT Codes: 75213-34 non-stress test Interp
[2023-03-22] MEDS: Famotidine 20 MG Tablet 40 MG PO (21:09)
--- NOTE | 2023-03-22 22:13 | NURSING ---
2155 pt transferred to [facility] Labor and Delivery via [facility]
== END 2023-03-22 21:55 | disposition short-term general hospital (02) ==
LOC: WPOUT 11:05 → WP 11:05
PROVIDERS: Registered Nurse; PCP Pediatrics; Referring Provider Obstetrics & Gynecology; Visit Provider Obstetrics & Gynecology
DX: O26.893 Other specified pregnancy related conditions, third trimester (principal); E75.249 Niemann-Pick disease, unspecified; R51.9 Headache, unspecified; O99.213 Obesity complicating pregnancy, third trimester; O09.893 Supervision of other high risk pregnancies, third trimester; Z3A.31 31 weeks gestation of pregnancy; O99.891 Other specified diseases and conditions complicating pregnancy; H54.50 Low vision, one eye, unspecified eye; H53.8 Other visual disturbances; O99.513 Diseases of the respiratory system complicating pregnancy, third trimester; J45.909 Unspecified asthma, uncomplicated; O99.283 Endocrine, nutritional and metabolic diseases complicating pregnancy, third trimester; O99.343 Other mental disorders complicating pregnancy, third trimester; F41.9 Anxiety disorder, unspecified; F32.A Depression, unspecified; Z87.891 Personal history of nicotine dependence; Z79.82 Long term (current) use of aspirin; Z79.899 Other long term (current) drug therapy
CPT/HCPCS: 96372; 36415; 59025; 59050; 70544; 70551; 82565; 82570; 84156; 84450; 84460; 84550; 85027; 99221; G0378

== ENCOUNTER 2023-04-12 17:40 | Outpatient (CLI) | payer MEDICAID, SELFPAY ==
[2023-04-12 17:51] VITALS: TEMP 37.2; O2SAT 97
[2023-04-12 17:53] VITALS: BP 136/69; PULSE 94
[2023-04-12 17:55] VITALS: PULSE 101; O2SAT 97
[2023-04-12 18:12] VITALS: BMI 38.0
[2023-04-12 18:39] LABS: Mucous, Urine 0 SEEN /hpf (<or=2+); Red Blood Cells-Urine 0 SEEN /hpf (0-5)
[2023-04-12 18:40] LABS: Color, Urine Yellow (Yellow); Glucose, Dipstick Normal (Normal); Ketone-Dipstick Negative (Negative); Leukocyte Esterase-Dipstick 25 /ul (Negative); Nitrite-Dipstick Negative (Negative); Occult Blood-Urine 10 /ul (Negative); Protein-Dipstick 15 mg/dl (Negative); Urine Bilirubin Dipstick Negative (Negative); Urine Clarity Clear (Clear); Urine Urobilinogen Normal (Normal)
[2023-04-12 18:46] LABS: Bacteria 1+ /hpf (None Seen); Squamous Epithelial Cells - UA 0-5 SEEN /hpf (5-10)
[2023-04-12 18:47] LABS: White Blood Cells 0-5 SEEN /hpf (0-5)
[2023-04-12 19:12] VITALS: BP 136/78; PULSE 88
[2023-04-12 19:13] VITALS: PULSE 90; TEMP 36.3; O2SAT 98
[2023-04-12] MEDS: Nitrofurantoin Macrocrystals 100 MG Capsule PO (19:54)
--- NOTE | 2023-04-12 20:02 | OB.TRI.HP_ITS ---
HPI - General HPI Narrative BRENNAN LÓPEZ, is a 27 F who presents at 34+5 with irritable contraction and pressure. active fetus. no vb/lof. Maternal Data Information ELISA Calculator Estimated Delivery Date Method Current WG Current Estimate 05/19/23 LMP (Certain) 34w 5d PFSH PFSH Medical History Fx clavicle Fx patella Osteoarthritis Post depression Home Medications aspirin 81 mg capsule 81 mg PO DAILY 12/07/21 [History Last Taken 02/04/23] ewjcxltx-swi-Uf-FA 1 mg tablet 1 tab PO DAILY 12/07/21 [History Last Taken 02/04/23] albuterol sulfate 90 mcg/actuation aerosol inhaler 1 inh inhalation ONCE 10/05/22 [History Last Taken 02/04/23] sertraline 25 mg tablet (Zoloft) 25 mg PO DAILY depression #90 tabs 10/05/22 [Rx Last Taken 02/04/23] blood pressure monitor (Blood Pressure Kit) #1 ea 03/08/23 [Rx Last Taken Unknown] mecobalamin (vitamin B12) 1,000 mcg disintegrating tablet,sublingual 1,000 mcg sublingual QHS 04/03/23 [History Last Taken Unknown] mecobalamin (vitamin B12) 10,000 mcg solution for injection mcg IM MONTHLY 04/03/23 [History Last Taken Unknown] nitrofurantoin monohydrate/macrocrystals 100 mg capsule (Macrobid) 100 mg PO Q12H 5 days #10 caps 04/12/23 [Rx Last Taken Unknown] Allergy/AdvReac Type Severity Reaction Status Date / Time cortisone Allergy Other Verified 04/03/23 11:54 bupropion AdvReac Severe Other Verified 04/03/23 11:54 Family History Grandfather Heart disease Mother Endometriosis Surgical History History of delivery History of removal of cyst Social History adopted: No household members: spouse and children housing: house number of children: 3 current occupational status: unemployed current occupation: [employer] current occupational exposures/hazards: No pets and animals: Yes pets and animals: dog(s) history of recent travel: No sexually active: Yes Smoking Status: Former smoker quit date: 08/31/22 how long ago did patient quit smoking: stops during preg alcohol intake: current alcohol intake frequency: holidays/special occasions only substance use type: does not use well-balanced diet: about half the time caffeine: Yes Type: carbonated beverages Number of servings: 2 and coffee Number of servings: 1 seatbelt use: always do you feel safe at home: Yes 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 Date Name GA/Weeks Outcome Route Bth Weight Gen Labor Lgth Ane sthesia Del Locatn Provider FOB 05/04/17 Adalyne 42 live - full term Female epi dural [facility] 05/09/22 Emberly 37 live - full term Female [facility] Delivery Date: 05/04/17 Last Updated by: Jolanta Rios CNM Pre E Visit Details Expected Delivery Route/Plan RLTCS possible tubal-declines TOLAC Plans Covid status: unvaccinated Flu vaccine: no Tdap vaccine: given Rhogam: NA LARC form signed: yes Problem list reviewed and updated with the most current plan of care details and appropriate orders placed. Relevant counseling for the gestational age provided. Continue routine care and follow up unless otherwise noted in visit notes/problem list details OB Flowsheet Initial Weight: Not Recorded Date -?-?-?-?-?-?-?-?-?-?-?-?- EGA Weight BP Urine Prot -?-?-?-?-?-?-?-?-?-?-?-?- Glucose FHR FuHt Pres Dilation -?-?-?-?-?-?-?-?-?-?-?-?- Effaced St Visit Note 10/17/22 -?-?-?-?-?-?-?-?-?-?-?-?- 9w 3d 199 lb 6 oz 109/65 -?-?-?-?-?-?-?-?-?-?-?-?- 170 -?-?-?-?-?-?-?-?-?-?-?-?- SM- CRL 1.5cm co ns with LMP 11/17/22 -?-?-?-?-?-?-?-?-?-?-?-?- 13w 6d 205 lb 2 oz 120/72 Nega tive -?-?-?-?-?-?-?-?-?-?-?-?- Negative 163 -?-?-?-?-?-?-?-?-?-?-?-?- JV- no lof, vagi nal bleeding, or cramping. GCT ordered. NIPT was normal. 12/14/22 -?-?-?-?-?-?-?-?-?-?-?-?- 17w 5d 208 lb 112/76 Negative -?-?-?-?-?-?-?-?-?-?-?-?- Negative 150 -?-?-?-?-?-?-?-?-?-?-?-?- KW- flutters, no cramping. AFP screening desired. Has US scheduled 12/27. encouraged Asa use. Starting using Albuterol more. discussed tubal with C/S 01/13/23 -?-?-?-?-?-?-?-?-?-?-?-?- 22w 0d 217 lb 6 oz 111/62 Nega tive -?-?-?-?-?-?-?-?-?-?-?-?- Negative 145 -?-?-?-?-?-?-?-?-?-?-?-?- JV- afp was nega tive, ultrasound normal, it's a boy! (they have 3 girls at home) 02/10/23 -?-?-?-?-?-?-?-?-?-?-?-?- 26w 0d 215 lb 113/70 Negative -?-?-?-?-?-?-?-?-?-?-?-?- Negative 146 -?-?-?-?-?-?-?-?-?-?-?-?- JV- pt fell sund ay and was monitored at [facility]. baby was fine but they think she tore a ligament in her knee and twisted her ankle. They told her that they would not do anything for her because MRI is not safe in I told her that this is not true and we need her to be seen. She is having moderate pain. 03/07/23 -?-?-?-?-?-?-?-?-?-?-?-?- 29w 4d 219 lb 4 oz 122/80 Nega tive -?-?-?-?-?-?-?-?-?-?-?-?- Negative 144 30 -?-?-?-?-?-?-?-?-?-?-?-?- MH-No vb,lof. Go od FM. Daily episodes of blurry vision, seeing black spots, feels like will pass out. Normal 28 wk GCT. Will get pre E labs. Enc freg meals, increase fluids. Call to be seen when occurs. -No vb,lof. Good FM. Daily episodes of blurry vision, seeing black spots, feels like will pass out. Normal 28 wk GCT. Will get pre E labs. Enc freg meals, increase fluids. Call to be seen when occurs. Larc and tdap. 03/22/23 -?-?-?-?-?-?-?-?-?-?-?-?- 31w 5d 222 lb 6 oz 116/71 Nega tive -?-?-?-?-?-?-?-?-?-?-?-?- Negative 140 32 -?-?-?-?-?-?-?-?-?-?-?-?- - no vb/lof/ct x. good fm. increase loss of vision in left eye. black floaters, inability to read with pressure in head. seeing to for repeat PEC labs and NST. BP reassuring. 04/03/23 -?-?-?-?-?-?-?-?-?-?-?-?- 33w 3d 221 lb 8 oz 115/66 Nega tive -?-?-?-?-?-?-?-?-?-?-?-?- Negative 145 34 -?-?-?-?-?-?-?-?-?-?-?-?- SM- no vb lof go od fm no regular ctx signed title 19 NST FHR Rate Baby A Baseline: 140 Variability:: Moderate Accelerations:: 15 x 15 Decelerations:: None NST Reactive:: Yes FHR Category:: Category I Uterine Activity:: irritable Assessment & Plan (1) UTI (urinary tract infection): COMMENT: urine dip and symptoms correlate with UTI. follow urine culture treatment with Macrobid PLAN: Plan Patient presents for triage evaluation secondary to pressue when standing, irritable contractions. urine dip consistent with UTI. FHT: Moderate variability reactive no decelerations category I tracing [place]: irritable Contractions, palp mild Assessment and plan: Reactive NST, reassuring maternal and status patient discharged to home to follow-up . UTI. macrobid rx sent, increase hydration. See problem list details for additional plan information. Charges/Coding Procedures Urinary/Genital 52xxx-59xxx: 21491-83 non-stress test Interp Multi Select Codes Visit Charges Office Visit/Consults: 61875 OV L3 Est
== END 2023-04-12 20:05 | disposition home or self-care (01) ==
LOC: WPOUT 17:46 → WP 17:47
PROVIDERS: PCP Pediatrics; Referring Provider Registered Nurse; Visit Provider Registered Nurse
DX: O23.43 Unspecified infection of urinary tract in pregnancy, third trimester (principal); Z3A.34 34 weeks gestation of pregnancy; Z87.891 Personal history of nicotine dependence; Z28.310 Unvaccinated for COVID-19
CPT/HCPCS: 59025; 59050; 81001

== ENCOUNTER → 2023-04-28 | Outpatient (CLI) | payer MEDICAID, SELFPAY | END | disposition home or self-care (01) | LOC: LABSPEC 16:53 | PROVIDERS: PCP Pediatrics; Referring Provider Advanced Practice Midwife; Visit Provider Advanced Practice Midwife | DX: O09.90 Supervision of high risk pregnancy, unspecified, unspecified trimester (principal) | CPT/HCPCS: 87081 ==

== ENCOUNTER 2023-05-08 18:50 | Outpatient (CLI) | payer MEDICAID, SELFPAY ==
[2023-05-08] VITALS (10 sets, daily range): BP systolic 108–118; BP diastolic 58–67; PULSE 73–89; TEMP 36.4–36.8; O2SAT 98; BMI 39.6
[2023-05-08 19:54] LABS: Hematocrit 34.7 % (37-47); Hemoglobin 11.4 g/dL (12.0-15.0); Mean Corp Hgb Conc 32.9 g/dL (32-36); Mean Corpuscular Hgb 28.5 pg (27.0-32.0); Mean Corpuscular Volume 86.8 fL (81-99); Mean Platelet Vol. 10.8 fl (6.2-12.0); Platelet Count 191 K/mm3 (150-450); RBC Distribution Width CV 13.2 % (11.6-14.6); RBC Distribution Width SD 41.9 fl (35.1-43.9); White Blood Count 13.5 K/mm3 (4.4-11.0)
[2023-05-08 20:06] LABS: AST(SGOT) 11 U/L (15-37); Alanine Aminotransfer ALT/SGPT 11 U/L (13-56); Creatinine, Serum 0.54 mg/dL (0.55-1.02); EST Glomerular Filtration Rate 144 mL/min (>60); Est Glom Filt Rate - Afr Amer 174 mL/min (>60); Estimated Creatinine Clearance 136.33 ml/min; Uric Acid 2.6 mg/dL (2.6-6.0)
[2023-05-08 20:07] LABS: Protein, Urine (Random) 21.9 mg/dL (<11.9); Protein:Creat Ratio 268 mg/g CRE (0-200)
[2023-05-08 20:12] LABS: Vitamin B12 578 pg/mL (211-911)
--- NOTE | 2023-05-08 21:15 | OB.TRI.HP_ITS ---
HPI - General General Date of Admission: 05/08/23 Date of Service: 05/08/23 Chief Complaint: loss of vision/blurry vision in left eye. headache on left side of head HPI Narrative BRENNAN LÓPEZ, is a 27 F who presents at 38.3 with loss of vision this morning now with blurry vision with dull aching headache 4/10 on left side of head. worsens with light and noise. +nausea, no vomiting. vitamin b 12 injection last given on Monday Maternal Data Information ELISA Calculator Estimated Delivery Date Method Current WG Current Estimate 05/19/23 LMP (Certain) 38w 3d PFSH PFS Medical History Fx clavicle Fx patella Osteoarthritis Post depression Home Medications aspirin 81 mg capsule 81 mg PO DAILY 12/07/21 [History Last Taken 02/04/23] xddwbyza-aux-Nv-FA 1 mg tablet 1 tab PO DAILY 12/07/21 [History Last Taken 02/04/23] albuterol sulfate 90 mcg/actuation aerosol inhaler 1 inh inhalation ONCE PRN asthma 10/05/22 [History Last Taken 02/04/23] blood pressure monitor (Blood Pressure Kit) #1 ea 03/08/23 [Rx Last Taken Unknown] mecobalamin (vitamin B12) 10,000 mcg solution for injection mcg IM MONTHLY b12 deficiency 04/03/23 [History Last Taken Unknown] Allergy/AdvReac Type Severity Reaction Status Date / Time cortisone Allergy Other Verified 05/08/23 19:42 bupropion AdvReac Severe Other Verified 05/08/23 19:42 Family History Grandfather Heart disease Mother Endometriosis Surgical History History of delivery History of removal of cyst Social History adopted: No household members: spouse and children housing: house number of children: 3 current occupational status: unemployed current occupation: [employer] current occupational exposures/hazards: No pets and animals: Yes pets and animals: dog(s) history of recent travel: No sexually active: Yes Smoking Status: Former smoker quit date: 08/31/22 how long ago did patient quit smoking: stops during preg alcohol intake: current alcohol intake frequency: holidays/special occasions only substance use type: does not use well-balanced diet: about half the time caffeine: Yes Type: carbonated beverages Number of servings: 2 and coffee Number of servings: 1 seatbelt use: always do you feel safe at home: Yes 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 Date Name GA/Weeks Outcome Route Bth Weight Infant Gen Labor Lgth Anesthesia Del [facility] Provider [facility] 05/04/17 Adalyne 42 live - full term Female epi dural [facility] 05/09/22 Emberly 37 live - full term Female [facility] Delivery Date: 05/04/17 Last Updated by: Jolanta Rios CNM Pre E Visit Details Expected Delivery Route/Plan RLTCS possible tubal-declines TOLAC Plans Covid status: unvaccinated Flu vaccine: no Tdap vaccine: given Rhogam: NA LARC form signed: yes Problem list reviewed and updated with the most current plan of care details and appropriate orders placed. Relevant counseling for the gestational age provided. Continue routine care and follow up unless otherwise noted in visit notes/problem list details OB Flowsheet Initial Weight: Not Recorded Date -?-?-?-?-?-?-?-?-?-?-?-?- EGA Weight BP Urine Prot -?-?-?-?-?-?-?-?-?-?-?-?- Glucose FHR FuHt Pres Dilation -?-?-?-?-?-?-?-?-?-?-?-?- Effaced St Visit Note 10/17/22 -?-?-?-?-?-?-?-?-?-?-?-?- 9w 3d 199 lb 6 oz 109/65 -?-?-?-?-?-?-?-?-?-?-?-?- 170 -?-?-?-?-?-?-?-?-?-?-?-?- SM- CRL 1.5cm co ns with LMP 11/17/22 -?-?-?-?-?-?-?-?-?-?-?-?- 13w 6d 205 lb 2 oz 120/72 Nega tive -?-?-?-?-?-?-?-?-?-?-?-?- Negative 163 -?-?-?-?-?-?-?-?-?-?-?-?- JV- no lof, vagi nal bleeding, or cramping. GCT ordered. NIPT was normal. 12/14/22 -?-?-?-?-?-?-?-?-?-?-?-?- 17w 5d 208 lb 112/76 Negative -?-?-?-?-?-?-?-?-?-?-?-?- Negative 150 -?-?-?-?-?-?-?-?-?-?-?-?- KW- flutters, no cramping. AFP screening desired. Has US scheduled 12/27. encouraged Asa use. Starting using Albuterol more. discussed tubal with C/S 01/13/23 -?-?-?-?-?-?-?--?-?-?-?-?- 22w 0d 217 lb 6 oz 111/62 Nega tive -?-?-?-?-?-?-?-?-?-?-?-?- Negative 145 -?-?-?-?-?-?-?-?-?-?-?-?- JV- afp was nega tive, ultrasound normal, it's a boy! (they have 3 girls at home) 02/10/23 -?-?-?-?-?-?-?-?-?-?-?-?- 26w 0d 215 lb 113/70 Negative -?-?-?-?-?-?-?-?-?-?-?-?- Negative 146 -?-?-?-?-?-?-?-?-?-?-?-?- JV- pt fell sund ay and was monitored at [facility]. baby was fine but they think she tore a ligament in her knee and twisted her ankle. They told her that they would not do anything for her because MRI is not safe in I told her that this is not true and we need her to be seen. She is having moderate pain. 03/07/23 -?-?-?-?-?-?-?-?-?-?-?-?- 29w 4d 219 lb 4 oz 122/80 Nega tive -?-?-?-?-?-?-?-?-?-?-?-?- Negative 144 30 -?-?-?-?-?-?-?-?-?-?-?-?- MH-No vb,lof. Go od FM. Daily episodes of blurry vision, seeing black spots, feels like will pass out. Normal 28 wk GCT. Will get pre E labs. Enc freg meals, increase fluids. Call to be seen when occurs. MH-No vb,lof. Good FM. Daily episodes of blurry vision, seeing black spots, feels like will pass out. Normal 28 wk GCT. Will get pre E labs. Enc freg meals, increase fluids. Call to be seen when occurs. Larc and tdap. 03/22/23 -?-?-?-?-?-?-?-?-?-?-?-?- 31w 5d 222 lb 6 oz 116/71 Nega tive -?-?-?-?-?-?-?-?-?-?-?-?- Negative 140 32 -?-?-?-?-?-?-?-?--?-?-?-?- LC- no vb/lof/ct x. good fm. increase loss of vision in left eye. black floaters, inability to read with pressure in head. seeing to for repeat PEC labs and NST. BP reassuring. 04/03/23 -?-?-?-?-?-?-?-?-?-?-?-?- 33w 3d 221 lb 8 oz 115/66 Nega tive -?-?-?-?-?-?-?-?-?-?-?-?- Negative 145 34 -?-?-?-?-?-?-?-?-?-?-?-?- SM- no vb lof go od fm no regular ctx signed title 19 04/18/23 -?-?-?-?-?-?-?-?-?-?-?-?- 35w 4d 226 lb 4 oz 116/77 -?-?-?-?-?-?-?-?-?-?-?-?- 140 35 -?-?-?-?-?-?-?-?-?-?-?-?- SM- no vb lof go od fm no regular ctx 04/28/23 -?-?-?-?-?-?-?-?-?-?-?-?- 37w 0d 230 lb 2 oz 110/70 Nega tive -?-?-?-?-?-?-?-?-?-?-?-?- Negative 130 37 0 -?-?-?-?-?-?-?-?-?-?-?-?- kw-no vb/lof/ctx . good fm. GBS today. labor precautions. 05/05/23 -?-?-?-?-?-?-?-?-?-?-?-?- 38w 0d 230 lb 8 oz 120/78 Trac e -?-?-?-?-?-?-?-?-?-?-?-?- Negative 135 38 Cephalic 1 -?-?-?-?-?-?-?-?-?-?-?-?- SM- no vb lof go od fm no regular ctx Physical Exam Const alert, oriented x3 and no apparent distress Eyes PERRL Resp normal respiratory effort, normal air movement, no retractions and no use of accessory muscles Cardio regular rate and regular rhythm GI soft to palpation and non-tender Inspection: Palpation: soft Rectal Exam: deferred Extremity normal to inspection and full ROM Neuro Motor Exam: strength 5/5 throughout and muscle tone normal throughout Deep Tendon Reflexes: Rt Patellar (L4): 2+ and Lt Patellar (L4): 2+ NST FHR Rate Baby A Baseline: 130 Variability:: Moderate Accelerations:: 15 x 15 Decelerations:: None NST Reactive:: Yes FHR Category:: Category I Uterine Activity:: irregular Assessment & Plan (1) Ocular migraine: COMMENT: Zofran, Tylenol follow up with neurology for likely diagnosis of ocular migraines PLAN: Plan Patient presents for triage evaluation secondary to left eye blurry vision and left sided headache. most likely ocular migraine based on symptoms. PEC labs and BP normal. zofran and tylenol provided in triage. FHT: Moderate variability reactive no decelerations category I tracing [place]: irregular Contractions Assessment and plan: Reactive NST, reassuring maternal and status patient discharged to home to follow-up in office. has c/s scheduled for monday. See problem list details for additional plan information. Charges/Coding Visit Charges Office Visits / Consults: 05671 OV L3 Est Procedures Urinary/Genital 52xxx-59xxx: 10211-03 non-stress test Interp Multi Select Codes Urinary/Genital Urinary/Genital CPT Codes: 43633-08 non-stress test Interp
[2023-05-08] MEDS: Acetaminophen 500 MG Tablet 1000 MG PO (21:27)
[2023-05-08] MEDS: Ondansetron ODT 4 MG Tablet PO (21:27)
== END 2023-05-08 21:51 | disposition home or self-care (01) ==
LOC: WPOUT 18:57 → WP 18:58
PROVIDERS: PCP Pediatrics; Visit Provider Registered Nurse
DX: O99.891 Other specified diseases and conditions complicating pregnancy (principal); H54.7 Unspecified visual loss; H53.8 Other visual disturbances; Z87.891 Personal history of nicotine dependence; Z3A.38 38 weeks gestation of pregnancy; O99.353 Diseases of the nervous system complicating pregnancy, third trimester; G43.909 Migraine, unspecified, not intractable, without status migrainosus
CPT/HCPCS: 36415; 59025; 59050; 82565; 82570; 82607; 84156; 84450; 84460; 84550; 85027; 99221; G0378

== ENCOUNTER 2023-05-12 05:00 | Inpatient (IN) | payer MEDICAID, SELFPAY ==
[2023-05-12] VITALS (24 sets, daily range): BP systolic 99–121; BP diastolic 49–70; PULSE 56–104; RESP 12–16; TEMP 35.8–36.8; O2SAT 94–100; BMI 39.5
--- NOTE | 2023-05-12 | FALS_PTH ---
PATIENT: BRENNAN LÓPEZ LOC: [facility] U#:[id number] AGE/SX: 27/F ROOM: [facility] RE05/12/[address]: Dr. Soraya Das DO : 1995 BED: 1 DIS: 05/14/2023 SPEC #: [id number] RECD: 05/12/23 13:19 STATUS: MARQUES DWIGHT #: [id number] LAMONTE: 05/12/23 00:[address]: Soraya Das DEPT: SURGICAL PATHOLOGY RECD BY: [place] ENTERED: 05/12/23 13:19 SP TYPE: FALL TUBES OTHR DR: Dr. Evelina Rendon MD Tissues: Fallopian tube Procedures: Surgery Specimen Level II HEADER OPERATION: Tubal ligation PRE-OP DIAGNOSIS: Sterilization TISSUE SUBMITTED: Fallopian tubes, tie on right tube MICROSCOPIC DIAGNOSIS Bilateral fallopian tubes, salpingectomy: Bilateral fallopian tubes, no pathologic diagnosis. SJ:nikita 05/15/2023 MICROSCOPIC DESCRIPTION Slides are reviewed. GROSS DESCRIPTION Received in fixative is one container labeled with the patient's name and designated bilateral fallopian tubes, tie on right. The specimen consists of bilateral fallopian tubes including fimbrial ends The right fallopian tube is identified by a suture and measures 9.0 cm in length and up to 0.9 cm in diameter and the left fallopian tube measures 7.0 cm in length and 0.7 cm in diameter. Sections reveal unremarkable cut surfaces. Orthotist Or Prosthetist sections are submitted in two cassettes as follows: 1 - right fallopian tube, 2 - left fallopian tube. / Philipp 05/12/2023 TC:4 CPT: 54697 x2
[2023-05-12] MEDS: Lactated Ringers 1,000 ML 999 ML IV (05:25)
[2023-05-12 05:41] LABS: Absolute Lymphocyte Count 2.54 X10^3/uL (0.83-4.51); Basophil# 0.03 X10^3/uL; Basophil% 0.3 % (0-1); Eosinophil# 0.05 X10^3/uL; Eosinophils% 0.4 % (0-5); Hematocrit 33.5 % (37-47); Hemoglobin 10.7 g/dL (12.0-15.0); Lymphocyte # 2.54 X10^3/ul (0.83-4.51); Lymphocyte % 22.5 % (19-41); Mean Corp Hgb Conc 31.9 g/dL (32-36); Mean Corpuscular Hgb 28.1 pg (27.0-32.0); Mean Corpuscular Volume 87.9 fL (81-99); Mean Platelet Vol. 10.9 fl (6.2-12.0); Monocyte# 0.62 X10^3/uL; Monocyte% 5.5 % (0-10); NRBC Flagged by Analyzer 0 % (0-5); Neutrophil # 7.97 X10^3/uL (2.7-7.7); Neutrophil % 70.6 % (47-70); Platelet Count 182 K/mm3 (150-450); RBC Distribution Width CV 13.4 % (11.6-14.6); RBC Distribution Width SD 43.5 fl (35.1-43.9); Red Blood Count 3.81 M/mm3 (4.2-5.4); White Blood Count 11.3 K/mm3 (4.4-11.0)
[2023-05-12] MEDS: Acetaminophen 500 MG Tablet 1000 MG PO ×3 (06:23→18:08)
[2023-05-12] MEDS: Sodium Citrate/Citric Acid 30 ML UDC PO (06:23)
[2023-05-12] MEDS: Lactated Ringers 1,000 ML 150 ML IV (06:23)
[2023-05-12] MEDS: Cefazolin 2 GM in 0.9% Normal Saline (100mL Bag) 100 ML IV (07:30)
--- NOTE | 2023-05-12 07:36 | HP.PCM.OB_ITS ---
HPI - General General Date of Admission: 05/12/23 HPI Narrative BRENNAN LÓPEZ, is a 27 y/o @ 39 weeks F who presents to L&D for a planned repeat section and BTL. Her was complicated with visual disturbances due to a profound vitamin B12 deficiency., This has been followed up by mfmisty and she is now being followed by neurology. She states that her vision is improved now. Maternal Data Information ELISA Calculator Estimated Delivery Date Method Current WG Current Estimate 05/19/23 LMP (Certain) 39w 0d PFSH PFSH Medical History (Updated 05/12/23 @ 05:21 by Pamela Mansfield) Anxiety Asthma Depression Fx clavicle Fx patella Osteoarthritis Post depression Pre-eclampsia Home Medications aspirin 81 mg capsule 81 mg PO DAILY 12/07/21 [History Last Taken 02/04/23] apcrrhmf-nfi-Gr-FA 1 mg tablet 1 tab PO DAILY 12/07/21 [History Last Taken 05/05/23] albuterol sulfate 90 mcg/actuation aerosol inhaler 1 inh inhalation ONCE PRN asthma 10/05/22 [History Last Taken 02/04/23] blood pressure monitor (Blood Pressure Kit) #1 ea 03/08/23 [Rx Last Taken Unknown] mecobalamin (vitamin B12) 10,000 mcg solution for injection mcg IM MONTHLY b12 deficiency 04/03/23 [History Last Taken 05/05/23] ondansetron 4 mg disintegrating tablet 4 mg PO Q8H PRN nausea and vomiting #20 tabs 05/08/23 [Rx Last Taken Unknown] Allergy/AdvReac Type Severity Reaction Status Date / Time cortisone Allergy Other Verified 05/08/23 19:42 bupropion AdvReac Severe Other Verified 05/08/23 19:42 Family History Grandfather Heart disease Mother Endometriosis Surgical History History of delivery History of removal of cyst Social History adopted: No household members: spouse and children housing: house number of children: 3 current occupational status: unemployed current occupation: [employer] current occupational exposures/hazards: No pets and animals: Yes pets and animals: dog(s) history of recent travel: No sexually active: Yes Smoking Status: Former smoker quit date: 08/31/22 how long ago did patient quit smoking: stops during preg alcohol intake: current alcohol intake frequency: holidays/special occasions only substance use type: does not use well-balanced diet: about half the time caffeine: Yes Type: carbonated beverages Number of servings: 2 and coffee Number of servings: 1 seatbelt use: always do you feel safe at home: Yes additional social history: Zfpcvjt-Yffl-Wjslsdg operator History 3 Elective abortions Hx Para 2 Spontaneous abortions Hx # Term Pregnancies 2 Ectopic pregnancies Hx # Pregnancies Multiple births # of living children 2 Past Pregnancies Del. Date Name GA/Weeks Outcome Route Bth Weight Gen Labor Lgth Anesthesia Del Locatn Provider [facility] 05/04/17 Adalyne 42 live - full term Female epi dural [facility] 05/09/22 Emberly 37 live - full term Female [facility] Delivery Date: 05/04/17 Last Updated by: Jolanta Rios CNM Pre E Visit Details Expected Delivery Route/Plan RLTCS possible tubal-declines TOLAC Plans Covid status: unvaccinated Flu vaccine: no Tdap vaccine: given Rhogam: NA LARC form signed: yes Problem list reviewed and updated with the most current plan of care details and appropriate orders placed. Relevant counseling for the gestational age provided. Continue routine care and follow up unless otherwise noted in visit notes/problem list details OB Flowsheet Initial Weight: Not Recorded Date -?-?-?-?-?-?-?-?-?-?-?-?- EGA Weight BP Urine Prot -?-?-?-?-?-?-?-?-?-?-?-?- Glucose FHR FuHt Pres Dilation -?-?-?-?-?-?-?-?-?-?-?-?- Effaced St Visit Note 10/17/22 -?-?-?-?-?-?-?-?-?-?-?-?- 9w 3d 199 lb 6 oz 109/65 -?-?-?-?-?-?-?-?-?-?-?-?- 170 -?-?-?-?-?-?-?-?-?-?-?-?- SM- CRL 1.5cm co ns with LMP 11/17/22 -?-?-?-?-?-?-?-?-?-?-?-?- 13w 6d 205 lb 2 oz 120/72 Nega tive -?-?-?-?-?-?-?-?-?-?-?-?- Negative 163 -?-?-?-?--?-?-?-?-?-?-?-?- JV- no lof, vagi nal bleeding, or cramping. GCT ordered. NIPT was normal. 12/14/22 -?-?-?-?-?-?-?-?-?-?-?-?- 17w 5d 208 lb 112/76 Negative -?-?-?-?-?-?-?-?-?-?-?-?- Negative 150 -?-?-?-?-?-?-?-?-?-?-?-?- KW- flutters, no cramping. AFP screening desired. Has US scheduled 12/27. encouraged Asa use. Starting using Albuterol more. discussed tubal with C/S 01/13/23 -?-?-?-?-?-?-?-?-?-?-?-?- 22w 0d 217 lb 6 oz 111/62 Nega tive -?-?-?-?-?-?-?-?-?-?-?-?- Negative 145 -?-?-?-?-?-?-?-?-?-?-?-?- JV- afp was nega tive, ultrasound normal, it's a boy! (they have 3 girls at home) 02/10/23 -?-?-?-?-?-?-?-?-?-?-?-?- 26w 0d 215 lb 113/70 Negative -?-?-?-?-?-?-?-?-?-?-?-?- Negative 146 -?-?-?-?-?-?-?-?-?-?-?-?- JV- pt fell sund ay and was monitored at [facility]. baby was fine but they think she tore a ligament in her knee and twisted her ankle. They told her that they would not do anything for her because MRI is not safe in I told her that this is not true and we need her to be seen. She is having moderate pain. 03/07/23 -?-?-?-?-?-?-?-?-?-?-?-?- 29w 4d 219 lb 4 oz 122/80 Nega tive -?-?-?-?-?-?-?-?-?-?-?-?- Negative 144 30 -?-?-?-?-?-?-?-?-?-?-?-?- MH-No vb,lof. Go od FM. Daily episodes of blurry vision, seeing black spots, feels like will pass out. Normal 28 wk GCT. Will get pre E labs. Enc freg meals, increase fluids. Call to be seen when occurs. MH-No vb,lof. Good FM. Daily episodes of blurry vision, seeing black spots, feels like will pass out. Normal 28 wk GCT. Will get pre E labs. Enc freg meals, increase fluids. Call to be seen when occurs. Larc and tdap. 03/22/23 -?-?-?-?-?-?-?-?-?-?-?-?- 31w 5d 222 lb 6 oz 116/71 Nega tive -?-?-?-?-?-?-?-?-?-?-?-?- Negative 140 32 -?-?-?-?-?-?-?-?-?-?-?-?- - no vb/lof/ct x. good fm. increase loss of vision in left eye. black floaters, inability to read with pressure in head. seeing to for repeat PEC labs and NST. BP reassuring. 04/03/23 -?-?-?-?-?-?-?-?-?-?-?-?- 33w 3d 221 lb 8 oz 115/66 Nega tive -?-?-?-?-?-?-?-?-?-?-?-?- Negative 145 34 -?-?-?-?-?-?-?-?-?-?-?-?- SM- no vb lof go od fm no regular ctx signed title 19 04/18/23 -?-?-?-?-?-?-?-?-?--?-?-?- 35w 4d 226 lb 4 oz 116/77 -?-?-?-?-?-?-?-?-?-?-?-?- 140 35 -?-?-?-?-?-?-?-?-?-?-?-?- SM- no vb lof go od fm no regular ctx 04/28/23 -?-?-?-?-?-?-?-?-?-?-?-?- 37w 0d 230 lb 2 oz 110/70 Nega tive -?-?-?-?-?-?-?-?-?-?-?-?- Negative 130 37 0 -?-?-?-?-?-?-?-?-?-?-?-?- kw-no vb/lof/ctx . good fm. GBS today. labor precautions. 05/05/23 -?-?-?-?-?-?-?-?-?-?-?-?- 38w 0d 230 lb 8 oz 120/78 Trac e -?-?-?-?-?-?-?-?-?-?-?-?- Negative 135 38 Cephalic 1 -?-?-?-?-?-?-?-?-?-?-?-?- SM- no vb lof go od fm no regular ctx ROS Constitutional Constitutional: Denies change in weight, fatigue, fever(s), headache(s), poor appetite or weakness Eyes Eyes: Denies blurry vision, change in vision, seeing flashes or spots in vision ENT HEENT: Denies dizziness, headache(s), loss taste/smell or sore throat Cardiovascular Cardiovascular: Denies chest pain, dizziness, dyspnea, irregular heart rhythm, leg edema, palpitations, rapid heart rate or vomiting Respiratory/Chest Respiratory/Chest: Denies chest tightness, cough, dyspnea or breast pain Gastrointestinal Gastrointestinal: Denies abdominal pain, anorexia, constipation, cramping, diarrhea, hemorrhoids, vomiting or weight changes Genitourinary Genitourinary: Denies dysuria, flank pain, genital lesions, genital pain, urinary frequency or urinary urgency Musculoskeletal Musculoskeletal: Denies back pain, difficulty walking, joint pain, limited range of motion, muscle cramps or numbness Integumentary Integumentary: Denies lesions or unusual bruising Neurologic Neurologic: Denies abnormal movements, abnormal speech, dizziness, numbness, seizure-like activity or syncope Psychiatric Psychiatric: Denies anxiety, behavioral changes, change in appetite, change in libido, cognitive impairment, confusion, depression, difficulty concentrating, hallucinations or suicidal thoughts Endocrine Endocrinology: Denies excessive sweating, polydipsia or polyuria Hematologic/Lymphatic Hematologic/Lymphatic: Denies easy bleeding, easy bruising or lymphadenopathy Allergic/Immunologic Allergic/Immunologic: Denies itchy eyes, lip swelling, seasonal rhinorrhea, rhinitis, throat swelling, tongue swelling, eczemia, wheezing or asthma Vital Signs Vital Signs Vital Signs: 05/12/23 05:16 05/12/23 05:16 05/12/23 05:18 Temperature Temperature Source Pulse Rate 104 H Respiratory Rate Blood Pressure 121/70 H Blood Pressure Mean BP Systolic 121 BP Diastolic 70 Blood Pressure Source Blood Pressure Position Blood Pressure Location Pulse Ox 98 Oxygen Delivery Method 05/12/23 05:18 05/12/23 05:21 05/12/23 05:21 Temperature Temperature Source Pulse Rate 97 87 Respiratory Rate Blood Pressure Blood Pressure Mean BP Systolic BP Diastolic Blood Pressure Source Blood Pressure Position Blood Pressure Location Pulse Ox 98 Oxygen Delivery Method 05/12/23 05:26 05/12/23 05:26 05/12/23 05:31 Temperature Temperature Source Pulse Rate 67 85 Respiratory Rate Blood Pressure Blood Pressure Mean BP Systolic BP Diastolic Blood Pressure Source Blood Pressure Position Blood Pressure Location Pulse Ox 99 Oxygen Delivery Method 05/12/23 05:31 05/12/23 06:09 Temperature 98.2 F Temperature Source Temporal Pulse Rate 76 Respiratory Rate 16 Blood Pressure 121/70 H Blood Pressure Mean 87 BP Systolic BP Diastolic Blood Pressure Source Monitor Blood Pressure Position Semi-Fowlers Blood Pressure Location Right Arm Pulse Ox 98 98 Oxygen Delivery Method Room Air Weight Weight: 230 lb 6.129 oz Body Mass Index (BMI) 39.5 Physical Exam Const alert, oriented x3, no apparent distress and healthy appearing General Appearance: cooperative; Negative for anxious HEENT normocephalic Face and Sinus: normal facial exam Eyes EOMs intact bilaterally and no scleral icterus General Eye: normal appearance of both eyes Neck full ROM and supple Lymph Lymphatic: no lymphadenopathy noted Chest Chest: abnormal inspection of the chest Resp normal respiratory effort Effort and Inspection: able to speak in complete sentences Cardio regular rate GI soft to palpation and non-tender Inspection: gravid Palpation: soft; Negative for tender Back/Spine no CVA tenderness Extremity normal to inspection, full ROM and no clubbing, cyanosis or edema General Extremity: Negative for calf tenderness or edema Skin Lesions: no lesions Rashes: no rashes Psych mental status grossly normal Labs Labs Labs: Blood Type O POSITIVE Antibody Screen NEGATIVE Hct 33.5 % (37-47) L Hgb 10.7 g/dL (12.0-15.0) L Syphilis Total Ab Non-reactive Rubella IgG Antibody Reactive (Nonreactive) Hep Bs Antigen Non-Reactive (Nonreactive) Hepatitis C Antibody Non-Reactive (Nonreactive) Chlamydia DNA (JOSE) Negative (Negative) N.gonorrhoeae DNA (JOSE) Negative (Negative) HIV 1&2 Antibody Non-Reactive (Nonreactive) Glucose 1 Hr 50 gm 95 mg/dL (70-140) Miscellaneous Test Assessment & Plan (1) Ocular migraine: COMMENT: Rachel García follow up with neurology for likely diagnosis of ocular migraines (2) Sterilization: COMMENT: title 19 signed 11/06 plan BS at time of cs (3) B12 deficiency: COMMENT: patient was found to have profound b12 deficiency in [place] causing visual changes and neurological abnormalities. (4) Contraception management: QUALIFIERS: Contraceptive encounter type: other general counseling and advice Qualified Code(s): Z30.09 - Encounter for other general counseling and advice on contraception COMMENT: desires BS with RCS. Will need title 19 (5) Obesity affecting : QUALIFIERS: Trimester: third trimester Obesity type affecting : unspecified obesity Qualified Code(s): O99.213 - Obesity complicating , third trimester (6) History of shoulder dystocia: COMMENT: in first , LTCS with second, plans RLTCS (7) History of pre-eclampsia: COMMENT: baseline labs and 81 mg asa at 14 weeks. 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 Stable (12) Supervision of high risk , antepartum: COMMENT: [id number] ELISA 05/19/23 PC Gregory Henderson, Eduard Grace) (13) Anxiety during : COMMENT: roseann kang (14) : QUALIFIERS: Weeks of gestation: 38 weeks Qualified Code(s): Z3A.38 - 38 weeks gestation of COMMENT: GBS neg, NIPT low risk, nl GCT, Negative AFP labs
--- NOTE | 2023-05-12 07:38 | DCINST_ITS ---
Discharge Instructions Diet Discharge Diet: No restrictions Activity Discharge Activity: May Not Drive (for 2 weeks or while taking narcotic pain medications.), May Shower and May Take a Tub Bath (in 7 days.) May resume sexual activity in: 4-6 weeks Weight Bearing Status: Full weight bearing Lifting Restrictions: 20 pounds Dressing / Incision Call your doctor if your incision/area has: Continuous Slow Oozing, Sudden Increased Bleeding, Increased Pain/ Swelling, Increased Redness and Foul Smelling Discharge Call your doctor if you observe: Fever of 101 or Higher and Using more than 1 pad per hour Suture Line Care: Avoid Pulling/Pushing and Avoid Pinching/Bending Cleanse incision/area with: Soap & Water and Keep Dressing Clean & Dry Follow Up Care Please Follow Up With: Soraya Das DO When: Call [phone] to make an appointment for an incision check in 1-2 weeks. Test Results: Test results from this visit will be discussed in further detail at your follow- up appointment, if applicable. Discharge Plan Admission Admit Date/Time: 05/12/23 05:00 Primary Reason for Your Visit: and tubal ligation Attending Provider: Soraya Das Primary Care Provider: Evelina Rendon Discharge Orders/Prescriptions Prescriptions: New ibuprofen 800 mg tablet 800 mg PO Q8H PRN (Reason: pain) Qty: 30 0RF Continued albuterol sulfate 90 mcg/actuation HFA aerosol inhaler 1 inh inhalation ONCE PRN (Reason: asthma) (DME) blood pressure monitor [Blood Pressure Kit] Kit See Rx Instructions .ROUTE .MEDSUPPLY Qty: 1 0RF Rx Instructions: As directed mecobalamin (vitamin B12) 10,000 mcg recon soln IM MONTHLY aspirin 81 mg Capsule 81 mg PO DAILY vnabgdil-xdi-Ar-FA 1 mg Tablet 1 tab PO DAILY ondansetron 4 mg tablet,disintegrating 4 mg PO Q8H PRN (Reason: nausea and vomiting) Qty: 20 0RF Referrals / Follow Up: Evelina Rendon MD [Primary Care Provider] - Disposition Disposition (needs filled in before D/C Order can be placed): Home, Self Care
[2023-05-12 08:00] LABS: Syphilis Antibodies Non-reactive
--- NOTE | 2023-05-12 08:45 | OP.PCM_ITS ---
Assessment & Plan (1) Ocular migraine: COMMENT: Rachel García follow up with neurology for likely diagnosis of ocular migraines (2) Sterilization: COMMENT: title 19 signed 11/06 plan BS at time of cs (3) B12 deficiency: COMMENT: patient was found to have profound b12 deficiency in [place] causing visual changes and neurological abnormalities. (4) Contraception management: QUALIFIERS: Contraceptive encounter type: other general counseling and advice Qualified Code(s): Z30.09 - Encounter for other general counseling and advice on contraception COMMENT: desires BS with RCS. Will need title 19 (5) Obesity affecting : QUALIFIERS: Trimester: third trimester Obesity type affecting : unspecified obesity Qualified Code(s): O99.213 - Obesity complicating , third trimester (6) History of shoulder dystocia: COMMENT: in first , LTCS with second, plans RLTCS (7) History of pre-eclampsia: COMMENT: baseline labs and 81 mg asa at 14 weeks. 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 Stable (12) Anxiety during : COMMENT: zoloft, stable (13) Supervision of high risk , antepartum: COMMENT: [id number] ELISA 05/19/23 PC Gregory Henderson, Eduard Grace) (14) : QUALIFIERS: Weeks of gestation: 38 weeks Qualified Code(s): Z3A.38 - 38 weeks gestation of COMMENT: GBS neg, NIPT low risk, nl GCT, Negative AFP labs Maternal Data Information ELISA Calculator Estimated Delivery Date Method Current WG Current Estimate 05/19/23 LMP (Certain) 39w 0d Final ELISA: 05/19/23 Final ELISA Source: LMP Gestational age: 39 weeks 0 days Details Operative Information Date of Procedure: 05/12/23 Pre-Operative Diagnosis: @ 39 weeks 0 days, breech presentation, prior section, desires repeat and permanent sterilization Post-Operative Diagnosis: @ 39 weeks 0 days, breech presentation, prior section, desires repeat and permanent sterilization Indications for : Repeat Elective Classification: Scheduled Procedure Type: low transverse upstream biomanufacturing technician #1: Jolanta Rios Type of Anesthesia: Spinal Antibiotic Given: Ancef 2 grams IV x1 Drain: [place] to straight drain Estimated Blood Loss: 500cc Findings Description of Procedure: The patient was brought to the operating room, spinal anesthesia was found to be adequate. She was prepped and draped in the normal sterile fashion and was placed in a dorsal supine position with a leftward tilt. Pfannenstiel skin incision was made with a scalpel and carried through to the underlying layers. The fascia was nicked in the midline and extended laterally using Maynard scissors. The anterior aspect of the fascia was grasped with Alexey clamps and the underlying rectus muscles dissected off using the Metzenbaum scissors. The rectus muscles were in the midline. Peritoneum was entered sharply. The uterus was identified and a bladder blade was inserted into the abdomen. Bladder flap was created off the uterus using Metzenbaum scissors. A transverse incision was made with a scalpel and extended laterally manually. The infant's feet were first to present and were gently grasped and guided out of the uterine incision. The legs and torso followed. The anterior shoulder was carefully swept across the chest. The was rotated to the opposite side and opposite arm was swept down and over the chest. The head was delivered with the help of my inventory control assistant using fundal pressure and also a finger in the mouth to flex the head. The mouth and nares were bulb suctioned. After a 30 second delay the cord was clamped and cut. The end was handed off to the awaiting die maker bench stamping for routine assessment. Placenta was delivered manually without difficulty but was noted to be bilobed and sent for pathology analysis. The uterus was exteriorized and cleared of all clots and debris. Incision was closed with an 0 Vicryl suture in a running locked fashion. Second layer of 1-0 monocryl suture was used in imbricating manner to create excellent closure and hemostasis. The right tube was grasped with a Kelli clamp and the underlying mesosalpinx was cauterized and cut with the ligasure device removing the entire tube and fimbriated end. The same procedure was performed on the opposite side. Both fallopian tubes were passed off for pathology analysis. The uterus was returned to the abdomen. The gutters were cleared of all clots and debris. The peritoneum was closed in a pursestring pattern using a 3-0 Vicryl suture. This muscle was reapproximated with a 3-0 Vicryl. The fascia was closed with a stratafix suture. Subcutaneous tissue layer was irrigated then closed using a plain gut suture. The skin was closed with a 4-0 Monocryl subcuticular stitch. The skin was also sealed with surgical glue. The patient tolerated the procedure well sponge lap and needle counts were correct at each tissue closure plane and the patient is now being brought to the recovery room in stable condition Presentation: Positive for Sae Breech Amniotic Membrane Rupture Type: Artificial Amniotic Fluid Description: Clear Placental Delivery Description: Manual Removal Placenta Disposition: [facility] Cord Vessel Description: 3 Vessels Cord Entanglement: None A Gender: Male (1 minute): 9 (5 minute): 9 Delayed Cord Clamping: Yes Complications Risks of Surgery Discussed w/Patient: Bleeding, Anesthesia Risks, Infection, Need for Future C-Sections, Permanency, Failure Rate of 1 to 2%, Injury to surrounding structure(s) including bowel and bladder and Availability of other non-permanent control options Multi Select Codes Urinary/Genital Urinary/Genital CPT Codes: 99456 delivery only and Other Procedure See Report (with bilateral salpingectomy)
[2023-05-12] MEDS: Oxytocin 15 Units/NS 250ml 15 UNITS/250 ML IV.SOLN 83 UNITS IV (08:55)
[2023-05-12] MEDS: Ketorolac 30 MG/ML Syringe IV ×3 (09:45→20:58)
[2023-05-12] MEDS: Senna/Docusate Sodium 1 Tablet PO (10:42)
[2023-05-12] MEDS: Lactated Ringers 1,000 ML 100 ML IV (12:07)
--- NOTE | 2023-05-12 14:15 | CASEMGMT ---
Social Work Assessment Labor and Delivery Unit Patient Address:[address] [place], [place] [address] [address] Phone number: [phone] Date of Referral: 05/12/23 Time of Referral:? 531 Referred By: Soraya Das Date of Intervention: 05/12/23 Time of Intervention:? 1200 Reason for Referral:? anxiety and depression Sw completed chart review and acknowledges social work consult due to maternal history of anxiety and depression. Sw presented to bedside and introduced self to mother of baby (MOB- Sumi) and father of baby (FOB- Eduard). Sw explained sw role during hospitalization and completed psychological assessment. Sw asked MOB to complete [place] Depression Scale and during that time asked FOB to step out of room. FOB left room respectfully. History obtained from: medical records and mother of baby (MOB)?and FOB. Household composition: MOB states that they are currently in between houses. They sold their house and then the purchase of their other house fell through. MOB states that at this time they are residing with paternal grandparents. MOB states that their three daughters and now baby boy will also live with them. Other children: Va Kelly (6 years old, FOB's daughter), Gregory (6 years old, MOB's daughter) and Santiago Kelly (1 year old daughter of both parents) Patient's parent/guardian status:? MOB states that she and FOTracy have been together for 3.5 years. They met at a campground that they were both camping at. ? Medical History: GABBY is 4, para 2- now 4. GABBY received routine care with [facility] during . GABBY delivered baby via scheduled at 39 weeks gestation on 05/12/23. Baby boy, named Contreras Callahan, was born weighing 8lb 10oz and his apagars were 9 and 9 at one and five minutes of life respectfully. MOB states that she is bottle feeding baby. Baby will be seen by Dr. Guzman through [facility] for pediatrics. Educational Status:? Both parents graduated from [employer]. MOB is currently in online college courses for HR. FOB does not have college education. Parents deny concerns of reading, learning and comprehension. Financial Status: FOB is gainfully employed outside of the home as a tabulating machine mechanic. FOB states that he has to use some vacation time to be off now that baby has been born. GABBY is a stay at home mom. 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 Infant Supplies: Parents state they have obtained all necessary baby items including: safe sleep space, clothes, diapers, wipes and bottles. Childcare/Caregiver(s):? MOB will be the primary caregiver to baby and FOB when not working. MOB states that paternal grandparents are also extremely involved. Transportation:??Both parents have their drivers license and reliable means of transportation. No transportation barriers at this time. Programs/Agencies Involved: ?GABBY is connected to [employer] through [facility]. GABBY also has WIC. GABBY states that she is also active in counseling with [facility], and online counseling agency, she meets with her counselor every week. ?? Children Services/Legal Issues:??? No history of children services involvement. No issues or concerns warranting a referral at this time. Behavioral Health Issues: ??Mental Health History:??FOB denies mental health history. GABBY states that she has been diagnosed with anxiety, depression and has a history of depression. GABBY states that she has intrusive thoughts at baseline. GABBY reports that she always worries about her children and FOB and their safety. GABBY states that her thought process has been improving since meeting wither her counselor on a regular basis.MOB state that she was previously on zoloft- but she did not like how it made he feel so she stopped taking it. GABBY stated that counseling/ therapy has helped her mental health the most. GABBY completed [place] Depression Scale, her score was an 18. Nolan discussed this high score with GABBY and encouraged her to stay connected to her community mental health supports during her period. Sw also encouraged MOB to talk to other people, natural supports who may be able to understand what GABBY is experiencing. GABBY states that she does have history of suicidal ideation, but she has never attempted to hurt herself. GABBY stated that these thoughts are also something that she is working through in counseling. GABBY stated that her parents were not healthy parents and they are no longer involved in her life. GABBY states that since cutting them out of her life she has been doing much better with her mental health. Substance Use History: MOB denies substance use prior to and during . ?? Family History:??MOB reports that her family does have history of mental health diagnoses and addiction. MOB states that her mom is an alcoholic and is not a healthy person, that is why she is no longer part of her life. ??? Drug Screens: ??No urine screens observed in chart review Family/Social Stressors:?MOB stated that trying to find housing at this time is extremely stressful. MOB states that this is something she knows is going to take time Support Systems: Paternal grandparents are the biggest supports at this time Depression/Shaken Baby/Safe Sleeping:? Sw educated parents on signs and symptoms of baby blues and depression. Sw explained to MOB that there are lots of other women who have experienced baby blues/ depression/ anxiety and it is a real thing. Sw explained to MOB that it is important to give herself musa and recognize that she is not alone. MOB expressed understanding. Sw provided literature for parents to review, as well as list of [facility] resources for [facility]. Sw educated parents on shaken baby prevention and ABCs of safe sleep. Parents expressed understanding. ASSESSMENT:? MOB and baby admitted following labor and delivery. MOB with mental health history, significant for anxiety, depression and history of depression. MOB talkative and open to support during assessment. MOB tearful at times when discussing her mental health and family history. MOB state that her family/ children is why she stays strong. MOB connected with supportive and appropriate mental health supports. PLAN:? MOB and baby to be discharged when medically ready. ?No other services requested or indicated. Zaheer Smith CONSUMER LOAN UNDERWRITER, AIR FORCE SENIOR OFFICER
[2023-05-12] MEDS: Enoxaparin 40 MG/0.4 ML Syringe SC (20:32)
--- NOTE | 2023-05-12 20:42 | NURSING ---
According to IV charting pt was saline locked at 1600 on 05/12/2023
[2023-05-12] MEDS: 0.9% Saline Lock 10 ML Syringe IV (20:58)
[2023-05-13 00:10] VITALS: BP 103/52; PULSE 70; RESP 16; TEMP 36.5; O2SAT 98
[2023-05-13] MEDS: Acetaminophen 500 MG Tablet 1000 MG PO ×4 (00:11→18:01)
[2023-05-13] MEDS: Ketorolac 30 MG/ML Syringe IV (03:00)
[2023-05-13] MEDS: 0.9% Saline Lock 10 ML Syringe IV (03:01)
[2023-05-13 03:04] VITALS: BP 112/56; PULSE 68; RESP 16; TEMP 36.1; O2SAT 98
[2023-05-13 06:30] LABS: Hematocrit 27.9 % (37-47); Hemoglobin 8.9 g/dL (12.0-15.0); Mean Corp Hgb Conc 31.9 g/dL (32-36); Mean Corpuscular Hgb 28.1 pg (27.0-32.0); Mean Platelet Vol. 10.9 fl (6.2-12.0); Platelet Count 150 K/mm3 (150-450); RBC Distribution Width CV 13.5 % (11.6-14.6); RBC Distribution Width SD 43.6 fl (35.1-43.9); Red Blood Count 3.17 M/mm3 (4.2-5.4)
[2023-05-13 09:21] VITALS: BP 104/50; PULSE 84; RESP 18; TEMP 36.4; O2SAT 99
[2023-05-13] MEDS: Senna/Docusate Sodium 1 Tablet PO (09:44)
[2023-05-13] MEDS: Ibuprofen 600 MG Tablet PO ×3 (09:44→21:32)
[2023-05-13] MEDS: Enoxaparin 40 MG/0.4 ML Syringe SC (09:45)
[2023-05-13] MEDS: Influenza Virus Vac Quad 23-24 60 MCG/0.5 ML SYRINGE IM (09:46)
--- NOTE | 2023-05-13 11:29 | PCM.PN.OB ---
Subjective Subjective Patient doing well without complaints. Tolerating PO. Ambulating and voiding without difficulty. feeding well. Denies chest pain, shortness of breath, calf pain/swelling, fevers, chills, lightheadedness. Objective Data Objective Data Vital Signs: Vital Signs Temp Pulse Resp BP Pulse Ox O2 Del Method 97.5 F L 84 18 104/50 L 99 Room Air 05/13/23 09:21 05/13/23 09:21 05/13/23 09:21 05/13/23 09:21 05/13/23 09:21 05/13/23 09:21 Oxygen Delivery Method Room Air Weight: 230 lb 6.129 oz Body Mass Index (BMI) 39.5 Intake & Output: Intake and Output for Last 24 Hours 05/11/23 05/12/23 05/13/23 23:59 23:59 23:59 Intake Total 3548.33 / 3548.33 Output Total 1300 / 1300 200 / 200 Balance 2248.33 / 2248.33 -200 / -200 Lab / Micro Data 05/13/23 06:03 Labs: Laboratory Results - last 24 hr 05/13/23 06:03: WBC 12.0 H, RBC 3.17 L, Hgb 8.9 L, Hct 27.9 L, MCV 88.0, MCH 28.1, MCHC 31.9 L, RDW Std Deviation 43.6, RDW Coeff of Aristides 13.5, Plt Count 150, MPV 10.9 ROS Constitutional Constitutional: Reports systems reviewed and no addt'l complaints, except as documented Cardiovascular Cardiovascular: Reports systems reviewed and no addt'l complaints, except as documented Respiratory/Chest Respiratory/Chest: Reports systems reviewed and no addt'l complaints, except as documented Gastrointestinal Gastrointestinal: Reports systems reviewed and no addt'l complaints, except as documented Physical Exam Const alert, oriented x3 and no apparent distress HEENT Head and Scalp: atraumatic Resp normal respiratory effort GI soft to palpation and non-tender Inspection: incision intact, healing well and drainage (none) Bimanual Exam - Vag & Uterus: uterus non-tender Uterus Palpation: uterus fundus firm (below Umbilicus) Assessment & Plan (1) delivery delivered: COMMENT: jv ltcs PLAN: Plan s/p LTCS PPD # 1 1. routine post care 2. breast feeding- support given 3. rh positive 4. rubella immune
[2023-05-13 14:15] VITALS: BP 108/56; PULSE 74; RESP 16; TEMP 36.6; O2SAT 99
[2023-05-13 18:03] LABS: Pathology Specimen OB SEE PATHOLOGY REPORT
[2023-05-13] MEDS: oxyCODONE 5 MG Tablet PO (19:17)
[2023-05-13 20:00] VITALS: BP 106/49; PULSE 61; RESP 16; TEMP 36.4; O2SAT 99
[2023-05-14] MEDS: Acetaminophen 500 MG Tablet 1000 MG PO ×3 (00:07→12:32)
[2023-05-14] MEDS: Ibuprofen 600 MG Tablet PO ×2 (02:32→09:36)
[2023-05-14] MEDS: oxyCODONE 5 MG Tablet PO ×3 (02:33→08:19)
[2023-05-14 02:41] VITALS: BP 113/57; PULSE 76; RESP 16; TEMP 36.7; O2SAT 97
[2023-05-14 08:22] VITALS: BP 125/59; PULSE 72; RESP 16; TEMP 36.8; O2SAT 98
[2023-05-14] MEDS: Senna/Docusate Sodium 1 Tablet PO (09:36)
[2023-05-14] MEDS: Enoxaparin 40 MG/0.4 ML Syringe SC (09:36)
[2023-05-14 12:25] VITALS: BP 111/66; PULSE 77; RESP 16; TEMP 36.6; O2SAT 98
--- NOTE | 2023-05-14 12:51 | PCM.PN.OB ---
Subjective Subjective Patient doing well without complaints. Tolerating PO. Ambulating and voiding without difficulty. feeding well. Denies chest pain, shortness of breath, calf pain/swelling, fevers, chills, lightheadedness. Objective Data Objective Data Vital Signs: Vital Signs Temp Pulse Resp BP Pulse Ox O2 Del Method 97.8 F 77 16 111/66 98 Room Air 05/14/23 12:25 05/14/23 12:25 05/14/23 12:25 05/14/23 12:25 05/14/23 12:25 05/14/23 12:25 Oxygen Delivery Method Room Air Weight: 230 lb 6.129 oz Body Mass Index (BMI) 39.5 Intake & Output: Intake and Output for Last 24 Hours 05/12/23 05/13/23 05/14/23 23:59 23:59 23:59 Intake Total 3548.33 / 3548.33 Output Total 1300 / 1300 200 / 200 Balance 2248.33 / 2248.33 -200 / -200 Lab / Micro Data 05/13/23 06:03 ROS Constitutional Constitutional: Reports systems reviewed and no addt'l complaints, except as documented Cardiovascular Cardiovascular: Reports systems reviewed and no addt'l complaints, except as documented Respiratory/Chest Respiratory/Chest: Reports systems reviewed and no addt'l complaints, except as documented Gastrointestinal Gastrointestinal: Reports systems reviewed and no addt'l complaints, except as documented Physical Exam Const alert, oriented x3 and no apparent distress HEENT Head and Scalp: atraumatic Resp normal respiratory effort GI soft to palpation and non-tender Inspection: incision intact, healing well and drainage (none) Bimanual Exam - Vag & Uterus: uterus non-tender Uterus Palpation: uterus fundus firm (below Umbilicus) Assessment & Plan (1) delivery delivered: COMMENT: charlie ltcs PLAN: Plan s/p LTCS PPD # 2 1. routine post care 2. breast feeding- support given 3. rh positive 4. rubella immune
== END 2023-05-14 13:30 | disposition home or self-care (01) | DRG 539 ==
PROVIDERS: Admitting Provider Obstetrics & Gynecology; PCP Pediatrics; Referring Provider Obstetrics & Gynecology; Visit Provider Obstetrics & Gynecology
PROC: 10D00Z1 Extraction of Products of Conception, Low, Open Approach (ICD-10-PCS; CPT 59514; principal; 2023-05-12 07:15)
DX: O34.211 Maternal care for low transverse scar from previous cesarean delivery (principal); O99.354 Diseases of the nervous system complicating childbirth; J45.909 Unspecified asthma, uncomplicated; F32.A Depression, unspecified; E53.8 Deficiency of other specified B group vitamins; G43.909 Migraine, unspecified, not intractable, without status migrainosus; F41.9 Anxiety disorder, unspecified; O99.214 Obesity complicating childbirth; O99.52 Diseases of the respiratory system complicating childbirth; Z30.2 Encounter for sterilization; Z79.82 Long term (current) use of aspirin; O32.1XX0 Maternal care for breech presentation, not applicable or unspecified; O99.284 Endocrine, nutritional and metabolic diseases complicating childbirth; O99.344 Other mental disorders complicating childbirth; Z37.0 Single live birth; Z3A.39 39 weeks gestation of pregnancy; Z87.891 Personal history of nicotine dependence
CPT/HCPCS: 59025; 59050; 85025; 85027; 86780; 86850; 86900; 86901; 88302; 99221; J7120; 90686; A4216; G0378; J2405

== ENCOUNTER 2023-12-25 14:28 | Emergency (ER) | payer MEDICAID, SELFPAY ==
[2023-12-25 14:29] VITALS: BP 139/77; PULSE 80; RESP 16; TEMP 36.6; O2SAT 100; BMI 36.6
--- NOTE | 2023-12-25 14:39 | EX.ED.VIS.EY ---
HPI History of Present Illness Chief Complaint: Eye Problem Narrative Narrative: This is a 28-year-old female who states she presents at the direction of her primary care provider's office, Dr. Rendon, because of discoloration around her bilateral eyes that she has noticed for about a week. She states that she has noticed that she has had dark circles around both her eyes. She denies any recent trauma to her head. 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 The discoloration did improve to the point where she has noticed that it was purple and yellow around her eyes in certain areas, but sometimes to see the discoloration, she needs a flashlight. She has been told twice now that it looked as if she was punched in both eyes. She also endorses that she has low B12, and that she has had heavy menses with cramping recently. She states she was told by her primary care provider's office that she should come to the emergency department and then she could schedule an appointment with them. [facility] Medical History Dental caries Asthma Depression Anxiety Pre-eclampsia B12 deficiency Osteoarthritis Fx clavicle Fx patella Post depression Home Medications ?Medication ?Instructions ?Recorded ?Last Taken ?Type albuterol sulfate 90 mcg/actuation 1 inh inhalation ONCE PRN asthma 10/05/22 02/04/23 History aerosol inhaler mecobalamin (vitamin B12) 10,000 mcg IM MONTHLY b12 deficiency 04/03/23 05/05/23 History mcg solution for injection Allergy/AdvReac Type Severity Reaction Status Date / Time cortisone Allergy Other Verified 12/25/23 14:29 bupropion AdvReac Severe Other Verified 12/25/23 14:29 Family History Grandfather Heart disease Mother Endometriosis Surgical History History of removal of cyst History of delivery Social History adopted: No household members: spouse and children housing: house number of children: 3 current occupational status: unemployed current occupation: [employer] current occupational exposures/hazards: No pets and animals: Yes pets and animals: dog(s) history of recent travel: No sexually active: Yes Smoking Status: Former smoker quit date: 08/31/22 how long ago did patient quit smoking: stops during preg alcohol intake: current alcohol intake frequency: holidays/special occasions only substance use type: does not use well-balanced diet: about half the time caffeine: Yes Type: carbonated beverages Number of servings: 2 and coffee Number of servings: 1 seatbelt use: always do you feel safe at home: Yes 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 HEENT: No sore throat. No neck pain. No loss of vision. No rhinorrhea. Discoloration around both eyes, dark circles/purple and yellow discoloration Cardiovascular: No chest pain. No palpitations. No pedal edema. Respiratory: No cough, no shortness of breath. Abdominal: No abdominal pain. No nausea. No vomiting. Genitourinary: No dysuria. No hematuria. Positive heavy menses with cramping. Musculoskeletal: No myalgias. No arthralgias. Neurologic: No headaches. No dizziness. No lightheadedness. Skin: No rash. No change in color. Psychiatric: No depression. No anxiety. EXAM Physical Exam Narrative Exam Narrative: Afebrile. Vital signs noted. HEENT: Normocephalic. Atraumatic. PERRL, EOMI. Neck soft and supple. No point tenderness or step off. No scleral icterus. She does have slightly darkened circles underneath her bilateral eyes. There may be slight yellow discoloration in the corners medially. They do not appear as dark nonblanching ecchymosis/raccoon eyes, however. Cardiovascular: Regular rate and rhythm. No murmurs, rubs, or gallops appreciated. Respiratory: No tachypnea. Lungs clear to auscultation bilaterally. Gastrointestinal: Abdomen soft, nontender, with normoactive bowel sounds. No rebound or guarding. Neurological: Awake. Alert. Nonfocal, nonlateralizing. Skin: No rash. Normal color. No pallor. Musculoskeletal: No pedal edema. Full range of motion extremities. Const Vital Signs: 12/25/23 14:29 Temperature 98 F Temperature Source Temporal Pulse Rate 80 Respiratory Rate 16 Blood Pressure 139/77 H Blood Pressure Mean 97 Pulse Ox 100 Oxygen Delivery Method Room Air MDM MDM MDM Narrative Medical decision making narrative: In the differential diagnosis would be bilateral eye ecchymosis from basilar skull fracture, but the history and physical does not support this. Also would be liver failure, but she is not showing any other clinical signs of this, no scleral icterus. May have been broken blood vessels, with ecchymosis that is improving. I lengthy discussion with the patient, and while I find no emergent condition that would require imaging of her brain, baseline laboratories will be obtained such as CBC, CMP, and TSH. I reviewed her laboratory work, is grossly unremarkable, she has normal white count, hemoglobin normal, platelet count normal. LFTs are grossly unremarkable and normal. TSH 1.21. At this point in time, I am unsure as to the cause of the discoloration around her eyes, but I feel she can be discharged to follow-up with her primary care provider. I do not feel that emergent CT is merited either. Disposition is discharged home in stable condition. Discharge Plan Triage Chief Complaint: Eye Problem ED Provider: David Carreon Dx/Rx/DC Orders Clinical Impression: Discoloration of eye, Encounter for medical screening examination Instructions: ED Screening Exam Medical Nonurgent Prescriptions: No Action albuterol sulfate 90 mcg/actuation HFA aerosol inhaler 1 inh inhalation ONCE PRN (Reason: asthma) mecobalamin (vitamin B12) 10,000 mcg recon soln IM MONTHLY Primary Care Provider: Evelina Rendon Referrals: Evelina Rendon MD [Primary Care Provider] - 3-5 Days Print Language: Estonian Disposition Disposition: Home, Self Care
[2023-12-25 15:36] LABS: Absolute Lymphocyte Count 2.07 X10^3/uL (0.83-4.51); Absolute Neutrophil Count 2.8 X10^3/uL (2.0-7.7); Basophil# 0.03 X10^3/uL; Basophil% 0.5 % (0-1); Eosinophil# 0.22 X10^3/uL; Eosinophils% 3.9 % (0-5); Hematocrit 42.2 % (37-47); Hemoglobin 13.5 g/dL (12.0-15.0); Lymphocyte # 2.07 X10^3/ul (0.83-4.51); Lymphocyte % 36.5 % (19-41); Mean Corpuscular Hgb 27.3 pg (27.0-32.0); Mean Corpuscular Volume 85.3 fL (81-99); Mean Platelet Vol. 9.8 fl (6.2-12.0); Monocyte# 0.55 X10^3/uL; Monocyte% 9.7 % (0-10); NRBC Flagged by Analyzer 0 % (0-5); Neutrophil # 2.79 X10^3/uL (2.7-7.7); Neutrophil % 49.2 % (47-70); Platelet Count 252 K/mm3 (150-450); RBC Distribution Width CV 14.9 % (11.6-14.6); RBC Distribution Width SD 46.9 fl (35.1-43.9); Red Blood Count 4.95 M/mm3 (4.2-5.4); White Blood Count 5.7 K/mm3 (4.4-11.0)
[2023-12-25 16:01] LABS: AST(SGOT) 15 U/L (15-37); Alanine Aminotransfer ALT/SGPT 21 U/L (13-56); Albumin, Serum 3.5 g/dL (3.2-5.0); Alkaline Phosphatase 89 U/L (45-117); Anion Gap 4 (5-15); BUN 8 mg/dL (7-18); BUN/Creat Ratio 12.6 RATIO (10-20); Calcium,Total 8.4 mg/dL (8.5-10.1); Chloride 110 mmol/L (98-107); Creatinine, Serum 0.64 mg/dL (0.55-1.02); EST Glomerular Filtration Rate 119 mL/min (>60); Est Glom Filt Rate - Afr Amer 143 mL/min (>60); Estimated Creatinine Clearance 149.23 ml/min; Globulin 3.5 g/dL (2.2-4.2); Glucose 98 mg/dL (74-106); Potassium 3.8 mmol/L (3.5-5.1); Sodium Level 139 mmol/L (136-145); Thyroid Stim Hormone (TSH) 1.21 uIU/mL (0.358-3.74)
[2023-12-25 16:33] VITALS: BP 130/78; PULSE 80; RESP 16; TEMP 36.7; O2SAT 99
== END 2023-12-25 16:34 | disposition home or self-care (01) ==
PROVIDERS: Emergency Provider Emergency Medicine; PCP Pediatrics; Visit Provider Emergency Medicine
DX: L81.9 Disorder of pigmentation, unspecified (principal); E53.8 Deficiency of other specified B group vitamins; Z79.899 Other long term (current) drug therapy; Z87.891 Personal history of nicotine dependence
CPT/HCPCS: 80053; 84443; 85025; 99283; A4216

== ENCOUNTER → 2024-03-20 | Outpatient (CLI) | payer MEDICAID, SELFPAY ==
[2024-03-20 15:59] LABS: Absolute Lymphocyte Count 2.63 X10^3/uL (0.83-4.51); Absolute Neutrophil Count 5.7 X10^3/uL (2.0-7.7); Basophil# 0.03 X10^3/uL; Basophil% 0.3 % (0-1); Eosinophil# 0.19 X10^3/uL; Eosinophils% 2.1 % (0-5); Hematocrit 43.8 % (37-47); Hemoglobin 14.3 g/dL (12.0-15.0); Lymphocyte # 2.63 X10^3/ul (0.83-4.51); Lymphocyte % 28.4 % (19-41); Mean Corp Hgb Conc 32.6 g/dL (32-36); Mean Corpuscular Hgb 28.2 pg (27.0-32.0); Mean Corpuscular Volume 86.4 fL (81-99); Mean Platelet Vol. 9.7 fl (6.2-12.0); Monocyte# 0.72 X10^3/uL; Monocyte% 7.8 % (0-10); NRBC Flagged by Analyzer 0 % (0-5); Neutrophil # 5.66 X10^3/uL (2.7-7.7); Neutrophil % 61.1 % (47-70); Platelet Count 284 K/mm3 (150-450); RBC Distribution Width CV 14.6 % (11.6-14.6); Red Blood Count 5.07 M/mm3 (4.2-5.4); White Blood Count 9.3 K/mm3 (4.4-11.0)
[2024-03-20 16:38] LABS: Estradiol 149.2 pg/mL; Follicle Stimulating Hormone 2.3 mIU/mL; Luteinizing Hormone 3.6 mIU/mL; T4 Free Direct 0.68 ng/dL (0.76-1.46)
[2024-03-20 17:08] LABS: Vitamin B12 1249 pg/mL (211-911); Vitamin D,25 Hydroxy 28.3 ng/mL
[2024-03-22 10:10] LABS: DHEA Sulfate 48.4 ug/dL (84.8-378.0)
== END | disposition home or self-care (01) ==
LOC: LAB 15:23
PROVIDERS: PCP Pediatrics; Referring Provider Obstetrics & Gynecology; Visit Provider Obstetrics & Gynecology
DX: N92.0 Excessive and frequent menstruation with regular cycle (principal)
CPT/HCPCS: 36415; 82306; 82607; 82627; 82670; 83001; 83002; 84439; 84443; 85025; 82626

== ENCOUNTER 2024-04-17 07:02 | Emergency (ER) | payer MEDICAID, SELFPAY ==
[2024-04-17 07:02] VITALS: BP 122/83; PULSE 75; RESP 16; TEMP 36.3; O2SAT 98; BMI 35.6
[2024-04-17 07:25] LABS: Mucous, Urine 0 SEEN /hpf (<or=2+)
--- NOTE | 2024-04-17 07:31 | ED.VIS.FEGU ---
HPI HPI - Female History of Present Illness Chief Complaint: Vag Bleeding Informant: patient Narrative Narrative: Patient is a 28 year old female presenting with hematuria vs vaginal bleeding as well as right flank pain and suprapubic pain. Patient states 2 nights ago her and her were experimenting sexually with toys and hand stuff. She notes the following day she started to have some mild discomfort in her vaginal area and also had some spotting. 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 She states this is usual as her last menstrual period was about 2 weeks ago and she should not have any vaginal bleeding. She went to put a tampon in about 10 minutes later had bled through it. The bleeding has subsided but she continues to have dark red bleeding. She is also developed significant pain around 2 AM with dysuria/burning sensation that is rating up to her right back. She states she sat on the toilet in a lot of pain between 2 AM and 5 AM because she was having so much urinary frequency. She is not sure if she has a UTI. She is unsure if the blood is coming from her urine or her vagina. She also thinks that maybe she is dehydrated as she has not been taking care of herself since she is been taking care of her children at home her sick. She had some nausea while walking to the car but denies any vomiting. States her bowel moods been good. Denies any fever but did have an episode of feeling shaky. Denies any lightheadedness or dizziness. Is not concern for as she has had tubal ligation. No other complaints or concerns reported at this time. Did not take anything for symptoms prior to arrival. [facility] Medical History Dental caries Asthma Depression Anxiety Pre-eclampsia B12 deficiency Osteoarthritis Fx clavicle Fx patella Post depression Home Medications ?Medication ?Instructions ?Recorded ?Last Taken ?Type albuterol sulfate 90 mcg/actuation 1 inh inhalation ONCE PRN asthma 10/05/22 02/04/23 History aerosol inhaler mecobalamin (vitamin B12) 10,000 mcg IM MONTHLY b12 deficiency 04/03/23 05/05/23 History mcg solution for injection ibuprofen 600 mg tablet 600 mg PO Q6H PRN PRN pain #20 04/17/24 Unknown Rx TABLETS phenazopyridine 200 mg tablet 200 mg PO TID #6 tabs 04/17/24 Unknown Rx (Pyridium) sulfamethoxazole 800 1 tab PO BID #14 tabs 04/17/24 Unknown Rx mg-trimethoprim 160 mg tablet (Bactrim DS) Allergy/AdvReac Type Severity Reaction Status Date / Time cortisone Allergy Other Verified 04/17/24 07:05 bupropion AdvReac Severe Other Verified 04/17/24 07:05 Family History Grandfather Heart disease Mother Endometriosis Surgical History History of removal of cyst History of delivery Social History adopted: No household members: spouse and children housing: house number of children: 3 current occupational status: unemployed current occupation: [employer] current occupational exposures/hazards: No pets and animals: Yes pets and animals: dog(s) history of recent travel: No sexually active: Yes Smoking Status: Former smoker quit date: 08/31/22 how long ago did patient quit smoking: stops during preg alcohol intake: current alcohol intake frequency: holidays/special occasions only substance use type: does not use well-balanced diet: about half the time caffeine: Yes Type: carbonated beverages Number of servings: 2 and coffee Number of servings: 1 seatbelt use: always do you feel safe at home: Yes 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 ED Constitutional Constitutional ED: Reports chills; Denies fever(s) Cardiovascular Cardiovascular: Denies chest pain Respiratory/Chest Respiratory/Chest: Denies cough Gastrointestinal Gastrointestinal: Reports abdominal pain and nausea; Denies constipation, diarrhea or vomiting Genitourinary Genitourinary ED: Reports dysuria, hematuria, urinary frequency and other Details: vaginal bleeding Musculoskeletal Musculoskeletal: Denies arthralgias or myalgias Integumentary Denies rash Neurologic Neurologic: Denies weakness Hematologic/Lymphatic Hematologic/Lymphatic: Denies easy bleeding or easy bruising EXAM Physical Exam Const Vital Signs: 04/17/24 07:02 04/17/24 09:02 04/17/24 11:00 Temperature 97.3 F L 98.1 F 98.1 F Temperature Source Oral Oral Oral Pulse Rate 75 72 72 Respiratory Rate 16 15 15 Blood Pressure 122/83 H 138/64 H 138/79 H Blood Pressure Mean 96 88 98 Pulse Ox 98 99 97 Oxygen Delivery Method Room Air Room Air Room Air Positive well nourished and well developed General Appearance ED: well developed and NAD HEENT Reports dry mucous membranes Negative for trauma Mouth ED: Yes dry mucous membranes Mouth: dry mucous membranes Eyes PERRL and EOMs intact bilaterally Neck supple Chest Wall inspection of chest normal and palpation of chest normal Resp normal respiratory effort and clear to auscultation bilaterally Cardio regular rate and regular rhythm GI normal to inspection, nondistended, normoactive bowel sounds Palpation: tender RLQ and suprapubic; Negative for guarding or rigid Narrative: [place] pelvic exam performed Normal external genitalia with no lesions. On speculum exam patient has dark red blood that is pooling in the vaginal canal with no clots. It seems to be coming from the cervix. I do not appreciate any vaginal lacerations. There is tenderness on suprapubic palpation with bimanual exam but no significant pelvic motion tenderness or adnexal tenderness. No obvious discharge or odor present. Back/Spine General Back: CVA tenderness right (mild) Lumbar Spine / Lower Back: Negative for lumbar spinal tenderness Extremity normal to inspection Neuro oriented x3 Sensorium / Orientation: alert Motor Exam: Negative for general weakness Psych mental status grossly normal Skin no rashes or lesions noted MDM MDM MDM Narrative Medical decision making narrative: Patient evaluated for urinary frequency, suprapubic abdominal pain as well as hematuria versus vaginal bleeding. Differential includes was not limited to urinary tract infection, pyelonephritis, vaginitis, PID, dysfunctional uterine bleeding or vaginal laceration. Patient is concerned for dehydration will check electrolytes. Will check a CBC for her white blood cell count ensure she does not have any acute anemia. Will perform pelvic exam to evaluate for degree of bleeding and to see if she has any type of vaginal laceration or signs of pelvic infection. Will give IV fluids and Toradol and reevaluate. Pelvic exam shows dark red blood coming through the cervix. She does have tenderness on exam but no vaginal lacerations appreciated. Tenderness seems to be more from the suprapubic region. Os is closed. No cervical motion tenderness. Will add on BV swab as well as GC/chlamydia and pelvic ultrasound however. Patient does have a leukocytosis and urinalysis does look consistent with urinary tract infection with 25-50 white blood cells and 2+ bacteria. There is tendon 25 red blood cells but minimal contamination (0-5 epithelial cells). Will send off for culture. Patient appears improved on repeat evaluation. Is urinating large volumes at this time. Ultrasounds does not show any acute process. The uterus measures 9.5 cm x 6.1 cm x 4.5 cm and there is a nabothian cyst of the cervix. The endometrium measures 3.9 mm in thickness and is hyperechoic. There is no mass. No ovarian cyst or mass are appreciated. No adnexal masses or lesions appreciated. Patient will be treated for urinary tract infection with possible early pyelonephritis given her presentation. Will follow-up with REGISTERED CLINICAL DIETITIAN as needed for this abnormal vaginal bleeding. Patient is hemodynamically stable otherwise with normal kidney function I do not think requires admission for IV antibiotics or emergent specialist consult at this time. Patient verbalized agreement intense plan. Is given return precautions. Discharged home in stable condition. Lab Data Attestation: I reviewed the patient's lab results. Labs: Laboratory Results - last 24 hr 04/17/24 04/17/24 07:08 07:15 WBC 14.0 H RBC 5.09 Hgb 14.8 Hct 44.1 MCV 86.6 MCH 29.1 MCHC 33.6 RDW Std Deviation 43.8 RDW Coeff of Aristides 13.8 Plt Count 264 MPV 9.6 Immature Gran % (Auto) 0.500 Neut % (Auto) 77.3 H Lymph % (Auto) 13.9 L Spencer % (Auto) 6.6 Eos % (Auto) 1.4 Baso % (Auto) 0.3 Absolute Neuts (auto) 10.8 H Absolute Lymphs (auto) 1.94 Nucleated RBC % 0 Sodium 139 Potassium 3.4 L Chloride 108 H Carbon Dioxide 25.0 Anion Gap 6 BUN 8 Creatinine 0.80 Estim Creat Clear Calc 117.63 Est GFR (MDRD) Af Amer 110 Est GFR (MDRD) Non-Af 91 BUN/Creatinine Ratio 10.0 Glucose 107 H Calcium 9.6 Urine Color Red Urine Clarity Turbid Urine pH 6.5 Ur Specific [place] 1.015 Urine Protein 500 H Urine Glucose (UA) Normal Urine Ketones 15 H Urine Occult Blood 250 H Urine Nitrite Negative Urine Bilirubin Negative Urine Urobilinogen Normal Ur Leukocyte Esterase 500 H Urine RBC 10-25 SEEN Urine WBC 25-50 SEEN Ur Squamous Epith Cells 0-5 SEEN Urine Bacteria 2+ Urine Mucus 0 SEEN Urine Test Negative Discharge Plan Triage Chief Complaint: Vag Bleeding ED Provider: Elodia Bro Dx/Rx/DC Orders Clinical Impression: UTI (urinary tract infection), Hematuria, Dysfunctional uterine bleeding, Pelvic pain Instructions: ED Dysfunctional Uterine Bleeding, ED Cystitis Female Adult Prescriptions: New sulfamethoxazole-trimethoprim [Bactrim DS] 800-160 mg tablet 1 tab PO BID Qty: 14 0RF phenazopyridine [Pyridium] 200 mg tablet 200 mg PO TID Qty: 6 0RF ibuprofen 600 mg tablet 600 mg PO Q6H PRN PRN (Reason: pain) Qty: 20 0RF No Action albuterol sulfate 90 mcg/actuation HFA aerosol inhaler 1 inh inhalation ONCE PRN (Reason: asthma) mecobalamin (vitamin B12) 10,000 mcg recon soln IM MONTHLY Primary Care Provider: Evelina Rednon Referrals: Soraya Das DO [Med Staff - Active Staff] - As soon as possible Evelina Rendon MD [Primary Care Provider] - Activity Restrictions/Additional Instructions: I suspect you have a urinary tract infection causing your pain and a lot of your symptoms. I am not exactly sure why you are having this abnormal vaginal breathing but it does seem to be coming from the uterus and not from a wound or laceration in the vaginal canal. Please follow-up with your REGISTERED CLINICAL DIETITIAN for this. Take antibiotics as prescribed. The ibuprofen 600 to help with pain but also has been shown to be helpful with abnormal uterine bleeding. If you have worsening symptoms or develop a fever especially after 48 hours antibiotics please return to the emergency room. Print Language: Tongan Disposition Disposition: Home, Self Care
[2024-04-17 07:32] LABS: Color, Urine Red (Yellow); Glucose, Dipstick Normal (Normal); Ketone-Dipstick 15 mg/dl (Negative); Leukocyte Esterase-Dipstick 500 /ul (Negative); Nitrite-Dipstick Negative (Negative); Occult Blood-Urine 250 /ul (Negative); Protein-Dipstick 500 mg/dl (Negative); Specific Gravity, Urine 1.015 (1.002-1.030); Urine Bilirubin Dipstick Negative (Negative); Urine Clarity Turbid (Clear); Urine Urobilinogen Normal (Normal); Urine pH 6.5 (5.0 - 8.0)
[2024-04-17] MEDS: Ketorolac 15 MG/ML Vial IV (07:39)
[2024-04-17] MEDS: 0.9% Normal Saline (1000mL) 1,000 ML 999 ML IV (07:39)
[2024-04-17 07:40] LABS: Bacteria 2+ /hpf (None Seen); Red Blood Cells-Urine 10-25 SEEN /hpf (0-5); Squamous Epithelial Cells - UA 0-5 SEEN /hpf (5-10); White Blood Cells 25-50 SEEN /hpf (0-5)
[2024-04-17 07:41] LABS: Absolute Lymphocyte Count 1.94 X10^3/uL (0.83-4.51); Absolute Neutrophil Count 10.8 X10^3/uL (2.0-7.7); Basophil# 0.04 X10^3/uL; Basophil% 0.3 % (0-1); Eosinophils% 1.4 % (0-5); Hematocrit 44.1 % (37-47); Hemoglobin 14.8 g/dL (12.0-15.0); Lymphocyte # 1.94 X10^3/ul (0.83-4.51); Lymphocyte % 13.9 % (19-41); Mean Corp Hgb Conc 33.6 g/dL (32-36); Mean Corpuscular Hgb 29.1 pg (27.0-32.0); Mean Corpuscular Volume 86.6 fL (81-99); Mean Platelet Vol. 9.6 fl (6.2-12.0); Monocyte# 0.92 X10^3/uL; Monocyte% 6.6 % (0-10); NRBC Flagged by Analyzer 0 % (0-5); Neutrophil # 10.83 X10^3/uL (2.7-7.7); Neutrophil % 77.3 % (47-70); Platelet Count 264 K/mm3 (150-450); RBC Distribution Width CV 13.8 % (11.6-14.6); RBC Distribution Width SD 43.8 fl (35.1-43.9); Red Blood Count 5.09 M/mm3 (4.2-5.4)
[2024-04-17 07:44] LABS: Internal QC Validated? YES +Cl - CLEAR BKGD; Pregnancy, Urine Negative Negative
[2024-04-17 07:45] LABS: Record Kit Lot#,Urine Preg HCG0000772476
--- NOTE | 2024-04-17 08:04 | US_ITS ---
STUDY: ULTRASOUND OF THE FEMALE PELVIS - COMPLETE REASON FOR EXAM: Female, 28 years old. Pain, abnormal bleeding LMP: April 03, 2024. TECHNIQUE: Transvaginal TECHNICAL QUALITY: Adequate. COMPARISON: None. FINDINGS: The uterus is anteverted and is in a midline position. The uterus measures 9.5 cm x 6.1 cm x 4.5 cm. There is a Nabothian cyst of the cervix. The endometrium measures 3.9 mm in thickness, and is hyperechoic. There is no demonstrated endometrial mass. There is no demonstrated myometrial mass. I.U.D. - The patient does not have an I.U.D. The right ovary is visualized. The right ovary measures 3.1 cm x 2.2 cm x 1.7 cm. There is no right ovarian cyst or ovarian mass. There is no visualized right adnexal mass or complex lesion. There is normal arterial and normal venous vascularity. The left ovary is visualized. The left ovary measures 3.2 cm x 2.1 cm x 2.5 cm. There is no left ovarian cyst or ovarian mass. There is no visualized left adnexal mass or complex lesion. There is normal arterial and normal venous vascularity. US/Transvaginal Non- IMPRESSION: Normal female pelvis. Electronically Signed: Greg Soto MD at 9:11 EDT ,
[2024-04-17 08:17] LABS: Anion Gap 6 (5-15); BUN 8 mg/dL (7-18); Calcium,Total 9.6 mg/dL (8.5-10.1); Chloride 108 mmol/L (98-107); EST Glomerular Filtration Rate 91 mL/min (>60); Est Glom Filt Rate - Afr Amer 110 mL/min (>60); Estimated Creatinine Clearance 117.63 ml/min; Glucose 107 mg/dL (74-106); Potassium 3.4 mmol/L (3.5-5.1); Sodium Level 139 mmol/L (136-145)
[2024-04-17 09:02] VITALS: BP 138/64; PULSE 72; RESP 15; TEMP 36.7; O2SAT 99
[2024-04-17 11:00] VITALS: BP 138/79; PULSE 72; RESP 15; TEMP 36.7; O2SAT 97
[2024-04-17] MEDS: Smz/Tmp Ds Tablet 1 TABLET PO (11:45)
[2024-04-17 11:48] VITALS: BP 133/72; PULSE 76; RESP 15; TEMP 36.2; O2SAT 99
== END 2024-04-17 11:49 | disposition home or self-care (01) ==
PROVIDERS: Emergency Provider Emergency Medicine; PCP Pediatrics; Visit Provider Emergency Medicine
DX: N39.0 Urinary tract infection, site not specified (principal); R31.9 Hematuria, unspecified; N88.8 Other specified noninflammatory disorders of cervix uteri; N93.8 Other specified abnormal uterine and vaginal bleeding; R10.2 Pelvic and perineal pain; Z87.891 Personal history of nicotine dependence; Z79.899 Other long term (current) drug therapy
CPT/HCPCS: 76830; 80048; 81001; 81025; 85025; 87077; 87086; 87088; 87186; 87210; 87491; 87591; 96361; 96372; 96374; 99281; 99283; J7030; A4216

== ENCOUNTER 2024-04-17 16:00 | Emergency (ER) | payer MEDICAID, SELFPAY ==
[2024-04-17 16:00] VITALS: BP 106/55; PULSE 88; RESP 18; TEMP 36.2; O2SAT 97
[2024-04-17 16:02] VITALS: BMI 36.7
--- NOTE | 2024-04-17 16:30 | EDS_ITS ---
HPI History of Present Illness Chief Complaint: Meds Only Informant: patient Onset/Context/Timing Onset: Yesterday Context: Gradual Onset Timing: Continuous Quality: Burning, dull Location: Suprapubic area Worsened by: Urination Relieved by: Nothing Narrative Narrative: Patient presents with lower abdominal and lower back pain that began yesterday. Patient was seen here earlier today and had a GC and chlamydia test performed. Patient was called back because her gonorrhea came back positive. Patient was started on Bactrim and Pyridium for urinary tract infection earlier today. Patient's chlamydia came back negative. Patient denies any fevers or chills. Patient describes her pain as burning in her suprapubic area and dull in her lower back. Patient states it is worse with urination. Patient states she feels shaky at times. [facility] Medical History (Updated 04/17/24 @ 16:[address] Mathieu Jorgensen DO) Dental caries Asthma Depression Anxiety Pre-eclampsia B12 deficiency Osteoarthritis Fx clavicle Fx patella Post depression Home Medications ?Medication ?Instructions ?Recorded ?Last Taken ?Type albuterol sulfate 90 mcg/actuation 1 inh inhalation ONCE PRN asthma 10/05/22 02/04/23 History aerosol inhaler mecobalamin (vitamin B12) 10,000 mcg IM MONTHLY b12 deficiency 04/03/23 05/05/23 History mcg solution for injection ibuprofen 600 mg tablet 600 mg PO Q6H PRN PRN pain #20 04/17/24 Unknown Rx TABLETS phenazopyridine 200 mg tablet 200 mg PO TID #6 tabs 04/17/24 Unknown Rx (Pyridium) sulfamethoxazole 800 1 tab PO BID #14 tabs 04/17/24 Unknown Rx mg-trimethoprim 160 mg tablet (Bactrim DS) Allergy/AdvReac Type Severity Reaction Status Date / Time cortisone Allergy Other Verified 04/17/24 16:00 bupropion AdvReac Severe Other Verified 04/17/24 16:00 Family History Grandfather Heart disease Mother Endometriosis Surgical History (Updated 04/17/24 @ 16:[address] Mathieu Jorgensen DO) History of repair of ACL History of removal of cyst History of delivery Social History (Updated 04/17/24 @ 16:[address] Mathieu Jorgensen, DO) adopted: No household members: spouse and children housing: house number of children: 3 current occupational status: unemployed current occupation: [employer] current occupational exposures/hazards: No pets and animals: Yes pets and animals: dog(s) history of recent travel: No sexually active: Yes Smoking Status: Current every day smoker tobacco type: cigarettes Smoking packs per day: 1 Smoking cigarettes per day: 20.0 how long ago did patient quit smoking: stops during preg alcohol intake: current alcohol intake frequency: holidays/special occasions only substance use type: does not use well-balanced diet: about half the time caffeine: Yes Type: carbonated beverages Number of servings: 2 and coffee Number of servings: 1 seatbelt use: always do you feel safe at home: Yes 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 Constitutional Constitutional ED: Denies chills or fever(s) Eyes Eyes: Denies blurry vision or change in vision ENT ENT ED: Denies rhinorrhea or sore throat Cardiovascular Cardiovascular: Denies chest pain or palpitations Respiratory/Chest Respiratory/Chest: Denies cough or dyspnea Gastrointestinal Gastrointestinal: Reports abdominal pain; Denies nausea or vomiting Genitourinary Genitourinary ED: Reports dysuria; Denies hematuria Musculoskeletal Musculoskeletal: Reports back pain; Denies neck pain Integumentary Denies abscess or rash Neurologic Neurologic: Denies headache(s) or weakness Allergic/Immunologic Allergic/Immunologic ED: Denies mouth swelling or urticaria EXAM Physical Exam Const Vital Signs: 04/17/24 16:00 Temperature 97.2 F L Temperature Source Temporal Pulse Rate 88 Respiratory Rate 18 Blood Pressure 106/55 L Blood Pressure Mean 72 Pulse Ox 97 Oxygen Delivery Method Room Air Positive well nourished and well developed General Appearance ED: well developed and NAD HEENT Reports moist mucous membranes Neck supple and no JVD Resp normal respiratory effort and clear to auscultation bilaterally Cardio regular rate and regular rhythm GI non-distended Palpation: soft and tender suprapubic; Negative for guarding or rebound tenderness present Neuro oriented x3, CN's II-XII intact bilaterally and no sensory deficits noted Motor Exam: strength 5/5 throughout Psych mental status grossly normal MDM MDM MDM Narrative Medical decision making narrative: Patient was given a dose of Rocephin here to cover the gonorrhea. Patient was instructed to continue her antibiotics as prescribed. Patient was instructed to follow-up with her primary care physician in 5 to 7 days. Patient understood and was agreeable with the plan. All questions were answered. Discharge Plan Triage Chief Complaint: Meds Only ED Provider: Mathieu Jorgensen Dx/Rx/DC Orders Clinical Impression: Gonorrhea, UTI (urinary tract infection) Instructions: ED Gonorrhea, Female Anatomy Prescriptions: No Action albuterol sulfate 90 mcg/actuation HFA aerosol inhaler 1 inh inhalation ONCE PRN (Reason: asthma) mecobalamin (vitamin B12) 10,000 mcg recon soln IM MONTHLY sulfamethoxazole-trimethoprim [Bactrim DS] 800-160 mg tablet 1 tab PO BID Qty: 14 0RF phenazopyridine [Pyridium] 200 mg tablet 200 mg PO TID Qty: 6 0RF ibuprofen 600 mg tablet 600 mg PO Q6H PRN PRN (Reason: pain) Qty: 20 0RF Primary Care Provider: Evelina Rendon Referrals: Evelina Rendon MD [Primary Care Provider] - 5-7 Days Print Language: Tajik Disposition Disposition: Home, Self Care
[2024-04-17] MEDS: Ceftriaxone 500 MG Vial IM (16:33)
[2024-04-17 16:41] VITALS: BP 104/64; PULSE 87; RESP 16; TEMP 36.5; O2SAT 99
== END 2024-04-17 16:44 | disposition home or self-care (01) ==
PROVIDERS: Emergency Provider Emergency Medicine; PCP Pediatrics; Visit Provider Emergency Medicine
DX: A54.9 Gonococcal infection, unspecified (principal); N39.0 Urinary tract infection, site not specified; J45.909 Unspecified asthma, uncomplicated; F17.210 Nicotine dependence, cigarettes, uncomplicated; Z79.899 Other long term (current) drug therapy
CPT/HCPCS: 96372

== ENCOUNTER → 2024-07-26 | Outpatient (CLI) | payer MEDICAID, SELFPAY ==
--- NOTE | 2024-07-26 14:32 | US_ITS ---
EXAM: US PELVIS TRANSABDOMINAL AND TRANSVAGINAL, COMPLETE CLINICAL INDICATION: pelvic pain/AUB TECHNIQUE: Transabdominal and transvaginal pelvic ultrasound was performed with grayscale and color Doppler imaging. Transvaginal imaging was used for better evaluation of the endometrium and adnexa. COMPARISON: Pelvic ultrasound from 04/17/2024. FINDINGS: UTERUS/CERVIX: Uterus: 9.3 x 5.1 x 4.2 cm. Endometrium: 8 mm. Anteverted. There is no uterine mass. RIGHT OVARY: 2.6 x 2.0 x 2.3 cm. Blood flow is present in the right ovary. LEFT OVARY: 3.2 x 2.1 x 2.4 cm. Blood flow is present in the left ovary. FREE FLUID: None. BLADDER: Unremarkable as visualized. Wall is normal thickness for degree of distention. US/Pelvic w/ Transvaginal IMPRESSION: Unremarkable pelvic ultrasound. Electronically Signed: Thomas Courtney MD at 0:56 EST ,
== END | disposition home or self-care (01) ==
PROVIDERS: PCP Pediatrics; Referring Provider Nurse Practitioner Family; Visit Provider Nurse Practitioner Family
DX: R10.2 Pelvic and perineal pain (principal); N93.9 Abnormal uterine and vaginal bleeding, unspecified
CPT/HCPCS: 76830; 76856

== ENCOUNTER → 2024-08-01 | Outpatient (CLI) | payer MEDICAID, SELFPAY ==
[2024-08-01 11:15] LABS: Absolute Lymphocyte Count 2.01 X10^3/uL (0.83-4.51); Absolute Neutrophil Count 4.4 X10^3/uL (2.0-7.7); Basophil# 0.03 X10^3/uL; Basophil% 0.4 % (0-1); Eosinophil# 0.13 X10^3/uL; Eosinophils% 1.9 % (0-5); Hematocrit 45.7 % (37-47); Hemoglobin 15.1 g/dL (12.0-15.0); Lymphocyte # 2.01 X10^3/ul (0.83-4.51); Lymphocyte % 28.6 % (19-41); Mean Corpuscular Hgb 29.2 pg (27.0-32.0); Mean Corpuscular Volume 88.4 fL (81-99); Mean Platelet Vol. 9.4 fl (6.2-12.0); Monocyte# 0.42 X10^3/uL; NRBC Flagged by Analyzer 0 % (0-5); Neutrophil # 4.41 X10^3/uL (2.7-7.7); Neutrophil % 62.8 % (47-70); Platelet Count 264 K/mm3 (150-450); RBC Distribution Width SD 42.4 fl (35.1-43.9); Red Blood Count 5.17 M/mm3 (4.2-5.4)
[2024-08-01 11:26] LABS: Vitamin B12 510 pg/mL (211-911); Vitamin D,25 Hydroxy 21.9 ng/mL
[2024-08-01 11:40] LABS: ALB/GLOB Ratio 1.1 RATIO (0.9-2.4); AST(SGOT) 17 U/L (15-37); Alanine Aminotransfer ALT/SGPT 25 U/L (13-56); Alkaline Phosphatase 95 U/L (45-117); Anion Gap 6 (5-15); BUN 8 mg/dL (7-18); BUN/Creat Ratio 10.7 RATIO (10-20); Calcium,Total 9.4 mg/dL (8.5-10.1); Chloride 105 mmol/L (98-107); Creatinine, Serum 0.75 mg/dL (0.55-1.02); EST Glomerular Filtration Rate 98 mL/min (>60); Est Glom Filt Rate - Afr Amer 119 mL/min (>60); Estradiol 113.3 pg/mL; Follicle Stimulating Hormone 4.3 mIU/mL; Free T3 3.2 pg/mL (2.18-3.98); Globulin 3.8 g/dL (2.2-4.2); Glucose 87 mg/dL (74-106); Luteinizing Hormone 3.3 mIU/mL; Potassium 3.9 mmol/L (3.5-5.1); Protein, Total 7.8 g/dL (6.4-8.2); Sodium Level 136 mmol/L (136-145); T4 Free Direct 0.77 ng/dL (0.76-1.46)
[2024-08-06 02:07] LABS: DHEA Sulfate 56.9 ug/dL (84.8-378.0); Testosterone Free 0.5 pg/mL (0.0-4.2); Thyroid Peroxidase AB < 9 IU/mL (0-34)
== END | disposition home or self-care (01) ==
LOC: BWCLAB 09:47
PROVIDERS: PCP Pediatrics; Referring Provider Nurse Practitioner Family; Visit Provider Nurse Practitioner Family
DX: Z13.29 Encounter for screening for other suspected endocrine disorder (principal); N91.2 Amenorrhea, unspecified; Z13.21 Encounter for screening for nutritional disorder; R53.83 Other fatigue
CPT/HCPCS: 36415; 80053; 82306; 82533; 82607; 82627; 82670; 83001; 83002; 84402; 84439; 84443; 84481; 85025; 86376; 82626

== ENCOUNTER 2025-01-27 07:45 | Emergency (ER) | payer MEDICAID, SELFPAY ==
[2025-01-27 07:46] VITALS: BP 135/92; PULSE 76; RESP 16; TEMP 36.6; O2SAT 100; BMI 37.4
--- NOTE | 2025-01-27 07:58 | EKG12_ITS ---
Test Reason : CP Blood Pressure : */* mmHG Vent. Rate : 69 BPM Atrial Rate : 69 BPM P-R Int : 140 ms QRS Dur : 78 ms QT Int : 402 ms P-R-T Axes : 54 54 36 degrees QTcB Int : 430 ms Normal sinus rhythm Normal ECG Confirmed by JULIENNE RICHARDSON, AMARA ([id number]), pictures editor HAMILTON ORTIZ ([id number]) on 01/28/2025 8:22:54 AM Referred By: TB Confirmed By: AMARA ROBINS MD
--- NOTE | 2025-01-27 07:59 | RAD_ITS ---
PROCEDURE: CHEST PA AND LATERAL 01/27/2025 REASON FOR EXAM: CHEST PAIN TECHNIQUE: CHEST PA AND LATERAL COMPARISON: None FINDINGS: Heart: The heart size is normal. Mediastinum: The mediastinal contour is unremarkable. Lungs: The lungs are clear. There is no atelectasis, consolidation, effusion or pneumonic infiltrate. Bones: There is a very subtle dextroscoliosis of the thoracic spine. RAD/Chest PA and Lateral IMPRESSION: NO ACUTE FINDINGS. Reading Location: [id number]
--- NOTE | 2025-01-27 08:00 | EDS_ITS ---
HPI History of Present Illness Chief Complaint: Chest Pain Narrative Narrative: Patient is a 21-year-old female with past medical as asthma, anxiety, depression, B12 deficiency who presents to the emergency department chief complaint chest pain and feeling retrosternal chest. Patient states that on Monday of this past week her symptoms started they have been intermittent off and on and she feels like they are progressively worsening. States that she had 2 asthma attacks over the last several days as well. Patient denies any sick contacts denies any history of control denies any recent travels denies any history of blood clots [facility] Medical History B12 deficiency Dental caries Asthma Depression Anxiety Pre-eclampsia Osteoarthritis Fx clavicle Fx patella Post depression Home Medications ?Medication ?Instructions ?Recorded ?Last Taken ?Type albuterol sulfate 90 mcg/actuation 1 inh inhalation ON CE PRN asthma 10/05/22 01/23/25 History aerosol inhaler atomoxetine 60 mg capsule 60 mg PO DAILY 01/27/25/12/15 History cyanocobalamin (vitamin B-12) 1,000 mcg subcut QMONTH 01/27/25 01/10/25 History 1,000 mcg/mL injection solution ibuprofen 200 mg tablet (Advil) 400 mg PO Q6H PRN pain 01/27/25 01/26/25 History metformin 500 mg tablet 1,000 mg PO DAILY 01/27/25 0 01/22/25 History Allergy/AdvReac Type Severity Reaction Status Date / Time cortisone Allergy Other Verified 01/27/25 07:48 bupropion AdvReac Severe Other Verified 01/27/25 07:48 Family History Grandfather Heart disease Mother Endometriosis Surgical History History of repair of ACL History of removal of cyst History of delivery Social History adopted: No household members: spouse and children housing: house number of children: 3 current occupational status: unemployed current occupation: [employer] current occupational exposures/hazards: No pets and animals: Yes pets and animals: dog(s) history of recent travel: No sexually active: Yes Smoking Status: Former smoker how long ago did patient quit smoking: stops during preg alcohol intake: current alcohol intake frequency: holidays/special occasions only substance use type: does not use well-balanced diet: about half the time caffeine: Yes Type: carbonated beverages Number of servings: 2 and coffee Number of servings: 1 seatbelt use: always do you feel safe at home: Yes additional social history: [employer] ROS ROS ED ROS Narrative Constitutional: Denies any fevers, chills, headaches Eyes: Denies change of double vision blurry vision Cardiovascular: Complains of chest pain as noted above radiating to her left neck region Respiratory: Denies coughing wheezing complains of asthma attacks as noted above Abdomen: Soft, nondistended, tender to palpation : Denies urinary symptoms Neurological: Denies numbness, wheeze, tingling Musculoskeletal: Denies back pain Skin: Denies any rashes or lesions EXAM Physical Exam Narrative Exam Narrative: General: Patient lying in bed rest comfortably did not appear to be acute distress Head: Atraumatic, normocephalic Eyes: PERRL bilateral, EOMI Black no conjunctival injection noted Neck: Soft, supple, trachea midline Cardiovascular: Regular rate and rhythm no murmurs gallops rubs noted Respiratory: Clear to auscultation bilaterally no rales rhonchi or wheezes noted Abdomen: Soft, nondistended, nontender to palpation Extremities: +5/5 strength noted in the bilateral upper and lower extremities, radial pulses +2/4 and about extremities, no pedal edema exam Neurological: Patient follow commands knew that he she was at [facility] year is 2024 Skin: Warm, dry, tact no rashes or lesions noted Const Vital Signs: 01/27/25 07:46 01/27/25 07:46 01/27/25 08:04 Temperature 97.9 F Temperature Source Oral Pulse Rate 76 Respiratory Rate 16 Respiratory Effort Normal Blood Pressure 135/92 H Blood Pressure Mean 106 Pulse Ox 100 Oxygen Delivery Method Room Air Room Air 01/27/25 08:46 01/27/25 10:44 01/27/25 12:00 Temperature Temperature Source Pulse Rate 64 72 71 Respiratory Rate 18 15 23 H Respiratory Effort Blood Pressure 126/78 H 121/62 H 111/68 Blood Pressure Mean 94 81 82 Pulse Ox 98 100 100 Oxygen Delivery Method Room Air Room Air Room Air MDM MDM MDM Narrative Medical decision making narrative: Patient is a 29-year-old female who presented to the emerged part with chief co mplaint chest pain palpitations. On the differential diagnose includes but not limited to ACS,'s paroxysmal supraventricular tachycardia, other cardiac arrhythmia, electrolyte abnormality, , hyperthyroidism. Once workup is obtained reviewed she will be reevaluated. Patient's CBC reviewed showed no evidence leukocytosis white blood count 8.3, he was 14.8, platelet count 235. Patient sodium was 130, potassium normal at 4, creatinine was 0.64. Patient's troponin was less than 6 with a delta troponin of less than 6 EKG reviewed showed sinus rhythm with a rate of 69 bpm with a QTc of 430 and a [place] interval of 140. Patient TSH normal at 1.36, free T4 and T3 were 0.90 and 3.5 respectively test was negative. Chest x-ray reviewed and this was done by myself and by radiology showed no acute cardiopulmonary processes. There was a delay in disposition secondary to mishap with the need 2-hour troponin. Did discuss results with the patient she would like to go home at this point in time. We will place her on a Holter monitor and was advised to return with worsening symptoms or other concerns otherwise she is to follow-up with her doctor in the outpatient setting. She is agreeable to plan all question concerns answered she was discharged home in stable condition. Lab Data Labs: Laboratory Results - last 24 hr 01/27/25 01/27/25 01/27/25 08:00 08:04 10:50 WBC 8.3 RBC 4.94 Hgb 14.8 Hct 43.6 MCV 88.3 MCH 30.0 MCHC 33.9 RDW Std Deviation 43.6 RDW Coeff of Aristides 13.5 Plt Count 235 MPV 9.4 Immature Gran % (Auto) 0.200 Neut % (Auto) 65.5 Lymph % (Auto) 23.5 [place] % (Auto) 8.4 Eos % (Auto) 1.9 Baso % (Auto) 0.5 Absolute Neuts (auto) 5.5 Absolute Lymphs (auto) 1.96 Nucleated RBC % 0 Sodium 138 Potassium 4.0 Chloride 107 Carbon Dioxide 19.8 L Anion Gap 11 BUN 7 Creatinine 0.64 L Estim Creat Clear Calc 149.60 Est GFR (MDRD) Non-Af 123 BUN/Creatinine Ratio 10.3 Glucose 94 Calcium 9.0 Troponin T High Sens < 6 Troponin T Hi Sens 2 Hr < 6 TSH 1.360 Free T4 0.90 Free T3 pg/dL 3.5 Serum , Qual NEGATIVE Radiography Diagnostic Testing: Clinical Impression(s) from Imaging Studies Chest X-Ray 01/27/25 07:59 IMPRESSION: NO ACUTE FINDINGS. Reading Location: [facility] Discharge Plan Triage Chief Complaint: Chest Pain ED Provider: Phill Finch Dx/Rx/DC Orders Clinical Impression: Palpitation, Chest pain Prescriptions: No Action albuterol sulfate 90 mcg/actuation HFA aerosol inhaler 1 inh inhalation ONCE PRN (Reason: asthma) cyanocobalamin (vitamin B-12) 1,000 mcg/mL solution 1,000 mcg subcut QMONTH atomoxetine 60 mg capsule 60 mg PO DAILY metformin 500 mg tablet 1,000 mg PO DAILY Patient Comments: pt states she stopped last week because it was making her dehydrated ibuprofen [Advil] 200 mg tablet 400 mg PO Q6H PRN (Reason: pain) Primary Care Provider: Evelina Rendon Referrals: Evelina Rendon MD [Primary Care Provider] - Activity Restrictions/Additional Instructions: Wear Holter monitor as prescribed. Follow-up your doctor on this. Return with worsening symptoms or other concerns. Your blood work and your chest x-ray as well as your EKG did not show any acute findings here today. Print Language: Comoran Disposition Disposition: Home, Self Care
[2025-01-27] MEDS: 0.9% Normal Saline (1000mL) 1,000 ML 999 ML IV (08:13)
[2025-01-27 08:17] LABS: Hematocrit 43.6 % (37-47); Hemoglobin 14.8 g/dL (12.0-15.0); Immature Granulocytes Count 0.020 X10^3/uL (0.0-0.0); Mean Corp Hgb Conc 33.9 g/dL (32-36); Mean Corpuscular Volume 88.3 fL (81-99); Mean Platelet Vol. 9.4 fl (6.2-12.0); NRBC Flagged by Analyzer 0 % (0-5); Platelet Count 235 K/mm3 (150-450); RBC Distribution Width CV 13.5 % (11.6-14.6); RBC Distribution Width SD 43.6 fl (35.1-43.9); Red Blood Count 4.94 M/mm3 (4.2-5.4); White Blood Count 8.3 K/mm3 (4.4-11.0)
[2025-01-27 08:44] LABS: Anion Gap 11 (5-15); BUN 7 mg/dL (4-19); BUN/Creat Ratio 10.3 RATIO (10-20); Calcium,Total 9.0 mg/dL (7.6-11.0); Carbon Dioxide 19.8 mmol/L (21.0-32.0); Chloride 107 mmol/L (98-108); Estimated Creatinine Clearance 149.60 ml/min (50-250); Glucose 94 mg/dL (70-99); Potassium 4.0 mmol/L (3.3-5.1)
[2025-01-27 08:46] VITALS: BP 126/78; PULSE 64; RESP 18; O2SAT 98
[2025-01-27 08:49] LABS: Internal QC Validated? YES +Cl - CLEAR BKGD; Pregnancy, Serum, hCG Quali. NEGATIVE Negative; Record Kit Lot#, Serum Preg. 0000947241
[2025-01-27 09:15] LABS: Free T3 3.5 pg/mL (2.18-3.98)
[2025-01-27 09:16] LABS: Troponin T High Sensitivity < 6 ng/L (<=14)
[2025-01-27 10:44] VITALS: BP 121/62; PULSE 72; RESP 15; O2SAT 100
[2025-01-27 11:47] LABS: Troponin T High Sens 2 HR < 6 ng/L (<=14)
[2025-01-27 12:00] VITALS: BP 111/68; PULSE 71; RESP 23; O2SAT 100
[2025-01-27 13:14] VITALS: BP 117/68; PULSE 71; RESP 19; TEMP 36.6; O2SAT 98
== END 2025-01-27 13:15 | disposition home or self-care (01) ==
PROVIDERS: Emergency Provider Emergency Medicine; PCP Pediatrics; Visit Provider Emergency Medicine
DX: R00.2 Palpitations (principal); R07.9 Chest pain, unspecified; J45.909 Unspecified asthma, uncomplicated; Z79.899 Other long term (current) drug therapy; Z87.891 Personal history of nicotine dependence
CPT/HCPCS: 71046; 80048; 84439; 84443; 84481; 84484; 84703; 85025; 93005; 93225; 93226; 96360; 96361; 99284; A4216

== ENCOUNTER → 2025-01-27 | Outpatient (CLI) | payer MEDICAID, SELFPAY | END | disposition home or self-care (01) | LOC: PSN 12:56 | PROVIDERS: PCP Pediatrics; Visit Provider Emergency Medicine | DX: R00.2 Palpitations (principal) | CPT/HCPCS: 93225; 93226 ==